=== PATIENT | male | born 1965 | race African-American/Black ===

== ENCOUNTER 2017-11-16 00:09 | Emergency (ER) | payer OTHER ==
[~2017-11-16] VITALS: Ht 188 cm; Wt 133.8 kg
[~2017-11-16 00:09] MED LIST: IBUPROFEN600 MG ORAL; NKM
[2017-11-16] MEDS ORDERED: Norco 5mg/325mg tab ORAL ONE (00:30)
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
[2017-11-16] MEDS ORDERED: HYDROCODON-ACE1 EA15 ORAL (02:03)
[2017-11-16] MEDS ORDERED: IBUPROFEN600 MG ORAL (02:03)
[2017-11-16 02:15] VITALS: BP 141/102
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
--- NOTE | 2017-11-16 14:27 | Diagnostic Imaging Report ---
Indication: Trauma Technique: 2 views of the right knee. Comparison: None Findings: Only frontal and lateral views were obtained. Per, x-ray technologist notes, patient could not tolerate additional views. There is degenerative change of the knee manifested by joint space narrowing, subchondral sclerosis and small osteophytes. No definite acute fracture or dislocation. There is a small suprapatellar joint effusion. No radiopaque foreign body seen. IMPRESSION: Limited exam with acquisition of only a frontal and lateral views. No definite/displaced acute fracture. No dislocation. More complete evaluation with full knee series radiographs and/or MRI may be obtained for further evaluation as clinically indicated. Degenerative change.
--- NOTE | 2017-11-16 14:31 | Diagnostic Imaging Report ---
Indication: Trauma Technique: XRAY Knee Compl 4v+ L Comparison: None Findings: There is degenerative change of the knee manifested by joint space narrowing, subchondral sclerosis and small osteophytes. No definite acute fracture or dislocation. No joint effusion. No radiopaque foreign body seen. IMPRESSION: No evidence of acute fracture or dislocation. Degenerative change.
== END 2017-11-16 02:17 | disposition home or self-care (01) ==
LOC: EMR 00:26
DX: S83.91XA Sprain of unspecified site of right knee, initial encounter (principal); S30.810A Abrasion of lower back and pelvis, initial encounter; S70.312A Abrasion, left thigh, initial encounter; S50.312A Abrasion of left elbow, initial encounter; S80.212A Abrasion, left knee, initial encounter; F17.200 Nicotine dependence, unspecified, uncomplicated; E11.9 Type 2 diabetes mellitus without complications; I10 Essential (primary) hypertension; Y04.8XXA Assault by other bodily force, initial encounter; Y92.410 Unspecified street and highway as the place of occurrence of the external cause
CPT/HCPCS: 99284

== ENCOUNTER 2017-11-26 08:28 | Emergency (ER) | payer OTHER ==
[~2017-11-26] VITALS: Ht 188 cm; Wt 131.5 kg
[~2017-11-26 08:28] MED LIST changes: +HYDROCODON-ACE1 EA15 ORAL
[2017-11-26] MEDS ORDERED: NKM (08:35)
[2017-11-26 08:52] VITALS: BP 126/84
[2017-11-26] MEDS ORDERED: Ketorolac 60mg Inj IM ONE (09:00)
--- NOTE | 2017-11-26 09:10 | Emergency Room Report ---
History of Present Illness General Chief Complaint: Pain Source: Patient, Medical Record Present Illness HPI Patient present with complaints of continued and worsening right knee pain Reports that initially most of his discomfort was with the left side of his body He has seen his primary physician Had x-ray obtained here However over the past one day now feeling worsening discomfort to the right knee Patient is a [place] and was standing on his feet all day yesterday Denies any chest pain or shortness of breath reports that initially did not have much discomfort on the right side and seems to be worsening now over the past day or so Allergies: Coded Allergies: No Known Allergies (Unverified , 06/13/16) Patient History Past Medical History: see triage record Pertinent Family History: none Reviewed Nursing Documentation: PMH: Agreed; PSxH: Agreed Nursing Documentation-PMH Past Medical History: No History, Except For Hx Diabetes: Yes Review of Systems All Other Systems: negative except mentioned in HPI Physical Exam Vital Signs Date Time Temp Pulse Resp B/P (MAP) Pulse Ox O2 Delivery O2 Flow Rate FiO2 11/26/17 08:31 98.0 99 18 126/84 95 Room Air 98.1 Sp02 EP Interpretation: reviewed, normal General Appearance: well appearing, no apparent distress Head: normocephalic, atraumatic Eyes: bilateral eye PERRL, bilateral eye EOMI ENT: normal pharynx Neck: supple Respiratory: lungs clear Musculoskeletal: other - Patient has discomfort to the lateral aspect of the right knee, mild swelling compared to the left side, calf is nontender Neurologic: alert, oriented x3, responsive Skin: other - Multiple healing abrasions Lymphatic: no adenopathy Procedures Splinting Splinting : Consent: Verbal Location: right knee Pre-Made Type: knee immobilizer Pre-Proc Neuro Vasc Exam: normal Post-Proc Neuro Vasc Exam: normal Patient Tolerated: Well Complications: None Medical Decision Making Diagnostic Impression: Primary Impression: Knee pain, right ER Course Given the patient's history and complaints Given that his pain was not significant initially and now reports that he had worsening discomfort Also given that the patient had recent travel and bed rest because of the pain Ultrasound was performed for right-sided DVT The examination was negative for this patient was provided with a knee immobilizer and requires close follow-up with primary physician for outpatient MRI as appropriate CT/MRI/US Diagnostic Results CT/MRI/US Diagnostic Results : Impression Right lower extremity venous ultrasound: Negative for DVT Last Vital Signs Date Time Temp Pulse Resp B/P (MAP) Pulse Ox O2 Delivery O2 Flow Rate FiO2 11/26/17 08:52 98.1 74 18 126/84 95 Room Air 98.1 Status: improved Disposition: HOME, SELF-CARE Condition: Improved Scripts Ibuprofen* (MOTRIN*) 600 Mg Tablet 600 MG ORAL Q8H PRN for For Pain, #20 TAB 0 Refills Prov: Pravin Mathews DO 11/26/17 Additional Instructions: Patient is provided with the discharge instructions notified to follow up with primary doctor in the next 2-3 days otherwise return to the er with any worsening symptoms. Please note that this report is being documented using [employer] technology. This can lead to erroneous entry secondary to incorrect interpretation by the dictating instrument. Pravin Mathews DO November 26, 2017 09:10
[2017-11-26] MEDS ORDERED: IBUPROFEN600 MG ORAL (09:47)
[2017-11-26 10:08] VITALS: BP 126/84
--- NOTE | 2017-11-26 12:39 | Diagnostic Imaging Report ---
APPROVED REPORT CPT Code: 87258 Present Symptoms Lower Extremity Pain: Right RIGHT LEG: Venous imaging reveals a patent deep venous system. There is no evidence of thrombus within the femoral, popliteal or tibial segments. The greater saphenous vein is also within normal limits. Doppler indicates normal spontaneous flow within these segments.
== END 2017-11-26 10:11 | disposition home or self-care (01) ==
LOC: EMR 08:57
DX: M25.561 Pain in right knee (principal); E11.9 Type 2 diabetes mellitus without complications
CPT/HCPCS: 29125; 29515; 93971; 96372; 99284

== ENCOUNTER 2018-05-05 13:52 | Emergency (ER) | payer OTHER ==
[~2018-05-05] VITALS: Ht 188 cm; Wt 129.3 kg
[2018-05-05 14:05] VITALS: BP 149/83
[2018-05-05] MEDS ORDERED: HYDROcodone/Acetamin 7.5/325 tab ORAL ONE (14:45)
[2018-05-05] MEDS ORDERED: Lidocaine 1% Plain 30 ml INJ ONE (15:00)
--- NOTE | 2018-05-05 15:49 | Diagnostic Imaging Report ---
Indication: Hand pain Technique: 3 views left hand Comparison: none Findings: There is a nondisplaced oblique fracture of the base of the third metacarpal. There is posterior dislocation of the fifth proximal interphalangeal joint, with the middle phalanx dislocated posteriorly by one bone width. No definite associated fracture. No other acute fractures or dislocations.There is mild degenerative joint space narrowing of the fifth distal interphalangeal joint and of the second third and fourth proximal interphalangeal joints. Impression: Positive for anterior dislocation of the fifth proximal interphalangeal joint Positive for acute fracture of the base of the third metacarpal Degenerative changes as described Findings discussed by phone with Letitia Parsons in the emergency room at the time of interpretation
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
[2018-05-05] MEDS ORDERED: IBUPROFEN600 MG ORAL (16:10)
[2018-05-05] MEDS ORDERED: NORCO 5-325 TA1 EACH ORAL (16:10)
[2018-05-05] MEDS ORDERED: CEPHALEXIN500 MG ORAL (16:10)
[2018-05-05 16:27] VITALS: BP 141/83
[2018-05-05 16:28] VITALS: BP 141/83
--- NOTE | 2018-05-05 16:51 | Diagnostic Imaging Report ---
Indication: Pain, status post reduction of fifth finger dislocation Technique: 3 views left hand Comparison: 1 1/2 hours earlier Findings: Interim reduction of previously demonstrated fifth proximal phalangeal dislocation, with now satisfactory anatomic alignment. No underlying fracture demonstrated. Again demonstrated is a nondisplaced oblique fracture of the third metacarpal. Impression: Successful reduction of previously demonstrated fifth proximal interphalangeal joint dislocation Stable third metacarpal fracture
== END 2018-05-05 16:31 | disposition home or self-care (01) ==
LOC: EMR 14:22
DX: S61.217A Laceration without foreign body of left little finger without damage to nail, initial encounter (principal); S63.287A Dislocation of proximal interphalangeal joint of left little finger, initial encounter; S62.313A Displaced fracture of base of third metacarpal bone, left hand, initial encounter for closed fracture; W05.1XXA Fall from non-moving nonmotorized scooter, initial encounter; Y92.9 Unspecified place or not applicable; R73.03 Prediabetes
CPT/HCPCS: 26770; 73130; 99284; J2001; Z7502

== ENCOUNTER 2018-05-11 16:34 | Emergency (ER) | payer OTHER ==
[~2018-05-11] VITALS: Ht 188 cm; Wt 129.3 kg
[~2018-05-11 16:34] MED LIST changes: +CEPHALEXIN500 MG ORAL; +NORCO 5-325 TA1 EACH ORAL
--- NOTE | 2018-05-11 17:18 | Emergency Room Report ---
History of Present Illness General Chief Complaint: Wound Recheck/Suture Removal Source: Medical Record Present Illness HPI 53-year-old male presents to the emergency department complaining of 9 out of 10 in severity localized pain to the left hand since last week. Patient reports that he was seen here in the emergency department where he received sutures and had his hand placed in a splint due to fracture. Patient states that the splint has since been falling off. Patient denies new trauma or fall. Patient denies erythema bleeding or discharge from the sutured site. Pt. states he has not had follow up with ortho yet. reports it being $900 and he cant afford that much. Allergies: Coded Allergies: No Known Allergies (Unverified , 06/13/16) Patient History Past Medical History: see triage record Past Surgical History: none Pertinent Family History: none Reviewed Nursing Documentation: PMH: Agreed; PSxH: Agreed Nursing Documentation-PMH Past Medical History: No History, Except For Hx Diabetes: Yes - borderline, not on meds Review of Systems All Other Systems: negative except mentioned in HPI Physical Exam Vital Signs Date Time Temp Pulse Resp B/P (MAP) Pulse Ox O2 Delivery O2 Flow Rate FiO2 05/11/18 16:44 97.9 70 14 137/93 99 Room Air Sp02 EP Interpretation: reviewed, normal General Appearance: no apparent distress, alert, GCS 15, non-toxic Head: normocephalic, atraumatic Eyes: bilateral eye normal inspection, bilateral eye PERRL ENT: hearing grossly normal, normal voice Neck: full range of motion Respiratory: lungs clear, normal breath sounds, speaking full sentences Cardiovascular #1: regular rate, rhythm, normal capillary refill Cardiovascular #2: 2+ radial (R), 2+ radial (L) Musculoskeletal: back normal, gait/station normal, normal range of motion, tender - left hand at 3rd metacarpal. no left pinky ttp, Neurologic: alert, oriented x3, responsive, motor strength/tone normal, sensory intact, speech normal, grossly normal Psychiatric: judgement/insight normal Skin: normal color, no rash, warm/dry, well hydrated, wd healing/no infection noted - sutures to remain in several more days, wound check ok no evidence of infection. Medical Decision Making PA Attestation Dr. Winkler is my supervising Physician whom patient management has been discussed with. Diagnostic Impression: Primary Impression: Encounter for wound re-check Additional Impression: Problem with immobilizing cast ER Course 53-year-old male presents to the emergency department complaining of 9 out of 10 in severity localized pain to the left hand since last week. Patient reports that he was seen here in the emergency department where he received sutures and had his hand placed in a splint due to fracture. Patient states that the splint has since been falling off. Patient denies new trauma or fall. Patient denies erythema bleeding or discharge from the sutured site. Pt. states he has not had follow up with ortho yet. reports it being $900 and he cant afford that much. Ddx considered but are not limited to New Fracture, dislocation, contusion, Sprain/Strain/Spasm, suture removal, cellulitis just to name a few. Vital signs: are WNL, pt. is afebrile H&PE are most consistent with musculoskeletal injury will perform imaging to r/ o fractures/dislocations. ORDERS: - X-ray not required at this time no new trauma or fall. ED INTERVENTIONS: - VOLAR LEFT HAND Splint applied by earth moving technician. Pt. remains neurovascularly intact. - sutures to remain in several more days, wound check ok no evidence of infection. DISCHARGE: At this time pt. is stable for d/c to home. Will provide printed patient care instructions, and any necessary prescriptions. Care plan and follow up instructions have been discussed with the patient prior to discharge. Last Vital Signs Date Time Temp Pulse Resp B/P (MAP) Pulse Ox O2 Delivery O2 Flow Rate FiO2 05/11/18 16:44 97.9 70 14 137/93 99 Room Air Disposition: HOME, SELF-CARE Condition: Stable Scripts Bacitracin/Polymyxin B Sulfate (BACITRACIN-POLYMYXIN OINTMENT) 28.35 Gm Oint...g. 1 APPLIC TP BID, #28.3 GM Prov: Letitia Parsons 05/11/18 Patient Instructions: Metacarpal Fracture, [id number], Wound Check Additional Instructions: Take medications as directed. Follow up with an RECORD PRESS TENDER in 3-5 days, even if your symptoms have resolved. * TO PRESERVE FULL FUNCTION OF YOUR HAND* --Please review list of primary care clinics, if you do not already have a primary care provider Return sooner to ED if new symptoms occur, or current symptoms become worse. - Please note that this Emergency Department Report was dictated using [employer],SLgraduate engineer technology software, occasionally this can lead to erroneous entry secondary to interpretation by the dictation equipment. Letitia Parsons May 11, 2018 17:18
[2018-05-11] MEDS ORDERED: BACITRACIN-P28.35 GM TP (17:24)
[2018-05-11] MEDS ORDERED: Bacitracin Oint UD TOPIC ONE (17:30)
[2018-05-11 17:48] VITALS: BP 127/78
== END 2018-05-11 17:50 | disposition home or self-care (01) ==
LOC: EMR 17:10
DX: M79.642 Pain in left hand (principal); Z47.89 Encounter for other orthopedic aftercare
CPT/HCPCS: 99283

== ENCOUNTER 2018-05-17 08:50 | Emergency (ER) | payer OTHER ==
[~2018-05-17] VITALS: Ht 188 cm; Wt 129.3 kg
[~2018-05-17 08:50] MED LIST changes: +BACITRACIN-P28.35 GM TP
[2018-05-17 09:26] VITALS: BP 145/102
--- NOTE | 2018-05-17 15:26 | Emergency Room Report ---
History of Present Illness General Chief Complaint: Wound Recheck/Suture Removal Source: Patient Present Illness HPI 53-year-old male presents ED for evaluation. Is here for suture removal. Sustained a fall on 05/05 with dislocation and laceration to his left fifth finger. Was reduced and laceration was repaired. Is here for suture removal. Denies any pain. States wound is healing properly. Denies fevers or chills. Denies any discharge. No other aggravating relieving factors. Denies any other associated symptoms Allergies: Coded Allergies: No Known Allergies (Unverified , 06/13/16) Patient History Past Medical History: none Past Surgical History: none Pertinent Family History: none Social History: Denies: smoking, alcohol use, drug use Immunizations: UTD Reviewed Nursing Documentation: PMH: Agreed; PSxH: Agreed Nursing Documentation-PMH Past Medical History: No History, Except For Hx Diabetes: Yes - borderline, not on meds Review of Systems All Other Systems: negative except mentioned in HPI Physical Exam Vital Signs Date Time Temp Pulse Resp B/P (MAP) Pulse Ox O2 Delivery O2 Flow Rate FiO2 05/17/18 09:05 97.7 72 18 157/112 98 Room Air Sp02 EP Interpretation: reviewed, normal General Appearance: no apparent distress, alert, GCS 15, non-toxic Head: normocephalic Eyes: bilateral eye normal inspection, bilateral eye PERRL ENT: normal ENT inspection Neck: normal inspection Respiratory: normal inspection Cardiovascular #1: normal inspection Gastrointestinal: normal inspection Rectal: deferred Genitourinary: no CVA tenderness Musculoskeletal: normal range of motion Neurologic: normal inspection Psychiatric: normal inspection Skin: other - laceration L 5th finger healing. well approximated. no induration /erythema Lymphatic: normal inspection Medical Decision Making Diagnostic Impression: Primary Impression: Encounter for removal of sutures ER Course Patient presents to the emergency department today for suture removal. patient' s wound appears well-healed, and sutures are ready to be removed today. Using sterile technique the sutures were removed patient tolerated procedure well without any difficulty. Patient was given advice in how to care for the wound patient is advised followup with his private care doctor in 2-3 days and return to emergency room for any worsening conditions as needed Last Vital Signs Date Time Temp Pulse Resp B/P (MAP) Pulse Ox O2 Delivery O2 Flow Rate FiO2 05/17/18 09:26 97.7 85 18 145/102 98 Room Air Status: improved Disposition: HOME, SELF-CARE Condition: Stable Referrals: NON PHYSICIAN (PCP) Patient Instructions: Suture Removal, Care After Eliezer Nguyễn MD May 17, 2018 15:26
== END 2018-05-17 09:26 | disposition home or self-care (01) ==
LOC: EMR 09:25
DX: S61.217D Laceration without foreign body of left little finger without damage to nail, subsequent encounter (principal); W19.XXXD Unspecified fall, subsequent encounter; Z48.02 Encounter for removal of sutures
CPT/HCPCS: 99282

== ENCOUNTER 2019-05-29 03:35 | Emergency (ER) | payer OTHER ==
[~2019-05-29] VITALS: Ht 188 cm; Wt 131.1 kg
[2019-05-29 03:43] VITALS: BP 145/99
[2019-05-29 04:00] VITALS: BP 145/99
[2019-05-29] MEDS ORDERED: PSEUDOEPHEDRINE60 MG PO (04:02)
--- NOTE | 2019-05-29 04:03 | Emergency Room Report ---
History of Present Illness General Chief Complaint: Earache Source: Patient, Medical Record Present Illness HPI This a 54-year-old male with no past medical history. He presents with right ear pain and fullness. He said he fell asleep on the couch. When he woke up he said he has some dull throbbing sensation in his right ear. He said he cannot hear out of it. He felt like there is fluid inside the ear or something inside the ear. It comes and go. Denies any fever or chills. Does have some slight congestion now. No other complaint. No foreign body. No trauma. Allergies: Coded Allergies: No Known Allergies (Unverified , 06/13/16) Patient History Past Medical History: see triage record, old chart reviewed Past Surgical History: none Pertinent Family History: none Social History: Denies: smoking Immunizations: other Reviewed Nursing Documentation: PMH: Agreed; PSxH: Agreed Nursing Documentation-PMH Past Medical History: No History, Except For Hx Diabetes: Yes - borderline, not on meds Review of Systems Eye: Denies: eye pain, blurred vision ENT: Reports: ear pain; Denies: nose congestion, throat swelling Respiratory: Denies: cough, shortness of breath Cardiovascular: Denies: chest pain, palpitations Gastrointestinal: Denies: abdominal pain, diarrhea, nausea, vomiting Musculoskeletal: Denies: back pain, joint pain Skin: Denies: rash Neurological: Denies: headache, numbness Endocrine: Denies: increased thirst, increased urine Hematologic/Lymphatic: Denies: easy bruising All Other Systems: negative except mentioned in HPI Physical Exam Vital Signs Date Time Temp Pulse Resp B/P (MAP) Pulse Ox O2 Delivery O2 Flow Rate FiO2 05/29/19 03:40 98.1 92 18 145/99 (114) 96 Room Air Vitals unremarkable Sp02 EP Interpretation: reviewed, normal General Appearance: well appearing, no apparent distress, alert Head: normocephalic, atraumatic Eyes: bilateral eye PERRL, bilateral eye EOMI ENT: hearing grossly normal, normal pharynx, other - Right ear is normal. Left ear obstructed by cerumen Neck: full range of motion, supple, no meningismus Respiratory: chest non-tender, lungs clear, normal breath sounds Cardiovascular #1: regular rate, rhythm, no murmur Gastrointestinal: normal bowel sounds, non tender, no mass, no organomegaly, no bruit, non-distended Musculoskeletal: back normal, normal range of motion, gait/station normal Psychiatric: mood/affect normal Procedures Additional Procedure Procedure Narrative Procedure: Cerumen disimpaction Indication: Cerumen impaction Description: I irrigated the left ear with normal saline. A large cerumen removed. Patient tolerated procedure without any problem. Medical Decision Making Diagnostic Impression: Primary Impression: Impacted cerumen of left ear Additional Impression: Acute effusion of right ear ER Course Presents with right ear fullness and decreasing. I suspect that may be an effusion. No evidence of infection. Will discharge home. Last Vital Signs Date Time Temp Pulse Resp B/P (MAP) Pulse Ox O2 Delivery O2 Flow Rate FiO2 05/29/19 03:43 98.1 93 18 145/99 96 Room Air Status: improved Disposition: HOME, SELF-CARE Condition: Stable Scripts Pseudoephedrine Hcl* (SUDAFED*) 60 Mg Tablet 60 MG PO Q6H, #30 TAB Prov: Helder Moore MD 05/29/19 Referrals: Melissa ELDRIDGE,REFERRING (PCP) Additional Instructions: Follow-up with your doctor in 7 days. If not better, you may need referral to see ear nose and throat doctor. Return if worse. Helder Moore MD May 29, 2019 04:03
== END 2019-05-29 04:10 | disposition home or self-care (01) ==
LOC: EMR 03:51
DX: H65.01 Acute serous otitis media, right ear (principal); H61.22 Impacted cerumen, left ear; E11.9 Type 2 diabetes mellitus without complications
CPT/HCPCS: 69209; Z7502; 99282

== ENCOUNTER 2019-11-04 09:04 | Emergency (ER) | payer OTHER ==
[~2019-11-04] VITALS: Ht 188 cm; Wt 127.0 kg
[~2019-11-04 09:04] MED LIST changes: +PSEUDOEPHEDRINE60 MG PO
--- NOTE | 2019-11-04 09:20 | NUR ---
ED Nurse Note: Pt ambulated to ed c/o severe headaches puslating around tempals and forehead. pt states he was in an ER 2 weeks ago and was given migraine medication and antibiotics. pt states that he had spoke to his dr and was told to have a cat scan. MALCOLM at bedside.
[2019-11-04 09:23] VITALS: BP 148/93
[2019-11-04] MEDS ORDERED: Ketorolac 30mg Inj IM ONE (09:30)
--- NOTE | 2019-11-04 09:52 | NUR ---
ED Nurse Note: Pt ambulated with steady gait with tech to CT head scan.
--- NOTE | 2019-11-04 10:04 | NUR ---
ED Nurse Note: Pt returned from CT with all belongings. Necklaces in pt pocket confirmed. pt states that temporal headache decreased but is hard to tell because his mask was pulling on his ear. Mask was changed and pt states that he feels slight pressure relieved but pain still at 7/10. will continue to monitor.
--- NOTE | 2019-11-04 10:53 | Diagnostic Imaging Report ---
Indications: Headache Technique: Spiral acquisitions obtained through the brain. Angled axial and coronal 5 x 5 mm slices were reconstructed. Total dose length product 1098 mGycm. CTDI vol(s) 53 mGy. Dose reduction achieved using automated exposure control Comparison: None. Findings: No acute intracranial hemorrhage or edema. No mass effect or midline shift. Normal de la rosa-white differentiation. Normal size ventricles and extra axial CSF spaces. Visualized orbits are unremarkable. There is bilateral ethmoid sinus disease incidentally noted. There is minimal right maxillary sinus disease. The mastoids are clear. The calvarium is intact. Impression: Negative for acute intracranial bleed or mass effect Minimal sinus disease The CT scanner at [facility] is accredited by the [employer] and the scans are performed using protocols designed to limit radiation exposure to as low as reasonably achievable to attain images of sufficient resolution adequate for diagnostic evaluation.
[2019-11-04 11:05] VITALS: BP 137/89
--- NOTE | 2019-11-04 11:06 | NUR ---
ED Nurse Note: ERMD at bedside discussing CT results. pt reports decreased headache
--- NOTE | 2019-11-04 11:08 | Emergency Room Report ---
History of Present Illness General Chief Complaint: Headache Source: Patient Present Illness HPI 54-year-old male presents the ED for evaluation of headache. Headache is been there for nearly 1 month. Frontal as well as temporal. Throbbing, 7 out of 10 , nonradiating. Denies photophobia. Denies blurry vision. Denies nausea or vomiting. Denies neck stiffness. Seen at another ER 2 weeks ago. Allergies: Coded Allergies: No Known Allergies (Unverified , 06/13/16) COVID-19 Screening Contact w/high risk pt: No Recent Travel to affected area: No Experienced COVID-19 symptoms?: No Patient History Past Medical History: DM Social History: Denies: smoking, alcohol use, drug use Immunizations: UTD Reviewed Nursing Documentation: PMH: Agreed; PSxH: Agreed Nursing Documentation-PMH Past Medical History: No Stated History Hx Diabetes: Yes - borderline, not on meds Review of Systems All Other Systems: negative except mentioned in HPI Physical Exam Vital Signs Date Time Temp Pulse Resp B/P (MAP) Pulse Ox O2 Delivery O2 Flow Rate FiO2 11/04/19 09:13 97.7 75 18 148/93 (111) 96 Room Air Sp02 EP Interpretation: reviewed, normal General Appearance: no apparent distress, alert, GCS 15, non-toxic Head: normocephalic, atraumatic Eyes: bilateral eye normal inspection, bilateral eye PERRL ENT: hearing grossly normal, normal pharynx, no angioedema, normal voice Neck: full range of motion, supple, no meningismus, supple/symm/no masses Respiratory: chest non-tender, lungs clear, normal breath sounds, speaking full sentences Cardiovascular #1: regular rate, rhythm, no edema Cardiovascular #2: 2+ carotid (R), 2+ carotid (L), 2+ radial (R), 2+ radial (L) , 2+ dorsalis pedis (R), 2+ dorsalis pedis (L) Gastrointestinal: normal bowel sounds, non tender, soft, non-distended, no guarding, no rebound Rectal: deferred Genitourinary: normal inspection, no CVA tenderness Musculoskeletal: back normal, normal range of motion, gait/station normal, non- tender Neurologic: alert, motor strength/tone normal, oriented x3, sensory intact, responsive, speech normal Psychiatric: judgement/insight normal, memory normal, mood/affect normal, no suicidal/homicidal ideation Reflexes: 3+ bicep (R), 3+ bicep (L), 3+ tricep (R), 3+ tricep (L), 3+ knee (R) , 3+ knee (L) Lymphatic: no adenopathy Medical Decision Making Diagnostic Impression: Primary Impression: Headache Qualified Codes: R51 - Headache ER Course Hospital Course 54 yo M presents with headache x 1 month Differential diagnoses include: tension headache, migraine, dehydration, intracranial bleed Clinical course Patient placed on stretcher. After initial history and physical I ordered CT Head, toradol and reglan CT head no acute process Upon reassessment patient states pain has improved. Patient feels better wishes to go home. Given the lack of fever, nuchal rigidity or neurological findings my suspicion for intracranial pathology is low patient be safely discharged to home. Safe for discharge with close outpatient follow-up. Patient would benefit from outpatient neurology evaluation. Does not have a PMD. I will provide referrals i. I feel this is a highly complex case requiring extensive working including EKG/Rhythm strip, Xray/CT/US, Blood/urine lab work, repeat exams while in ED, and administration of strong opiates/narcotics for pain control, admission to hospital or close patient follow up. Diagnosis - headache stable and discharged to home with Rx Reglan, Fioricet. f/up with PMD/ neurology. return to ED if symptoms recur/worsen. CT/MRI/US Diagnostic Results CT/MRI/US Diagnostic Results : Imaging Test Ordered: CT Head Impression Comparison: None. Findings: No acute intracranial hemorrhage or edema. No mass effect or midline shift. Normal de la rosa-white differentiation. Normal size ventricles and extra axial CSF spaces. Visualized orbits are unremarkable. There is bilateral ethmoid sinus disease incidentally noted. There is minimal right maxillary sinus disease. The mastoids are clear. The calvarium is intact. Impression: Negative for acute intracranial bleed or mass effect Minimal sinus disease The CT scanner at [facility] is accredited by the [employer] and the scans are performed using protocols designed to limit radiation exposure to as low as reasonably achievable to attain images of sufficient resolution adequate for diagnostic evaluation. Last Vital Signs Date Time Temp Pulse Resp B/P (MAP) Pulse Ox O2 Delivery O2 Flow Rate FiO2 11/04/19 10:03 97.7 11/04/19 09:23 86 18 148/93 96 Room Air Status: improved Disposition: HOME, SELF-CARE Condition: Stable Scripts Acetamin/Butalbital/Caffeine* (FIORICET*) 1 Ea Tab 1 TAB ORAL Q6H, #15 TAB 0 Refills Prov: Eliezer Nguyễn MD 11/04/19 Metoclopramide Hcl* (REGLAN*) 10 Mg Tablet 10 MG ORAL THREE TIMES A DAY, #20 TAB Prov: Eliezer Nguyễn MD 11/04/19 Referrals: NON PHYSICIAN (PCP) Eliezer Nguyễn MD November 04, 2019 11:08
[2019-11-04] MEDS ORDERED: REGLAN10 MG ORAL (11:09)
[2019-11-04] MEDS ORDERED: FIORICET1 EA ORAL (11:09)
[2019-11-04 11:12] VITALS: BP 137/89
--- NOTE | 2019-11-04 11:12 | NUR ---
ER DISCHARGE NOTE: Patient is cleared to be discharged per ERMD, pt is aox4, on room air, with stable vital signs. pt was given dc and prescription instructions, pt was able to verbalize understanding, pt id band removed. pt is able to ambulate with steady gait. pt took all belongings.
== END 2019-11-04 11:12 | disposition home or self-care (01) ==
LOC: EMR 09:38
DX: R51 Headache (principal); E11.9 Type 2 diabetes mellitus without complications; J32.2 Chronic ethmoidal sinusitis; J32.0 Chronic maxillary sinusitis
CPT/HCPCS: 70450; 96372; J1885; Z7502; 99284

== ENCOUNTER 2020-05-17 11:06 | Inpatient (IN) | payer OTHER ==
[~2020-05-17] VITALS: Ht 188 cm; Wt 128.4 kg
[~2020-05-17 11:06] MED LIST changes: +FIORICET1 EA ORAL; +REGLAN10 MG ORAL
[2020-05-17 11:11] VITALS: BP 132/85
--- NOTE | 2020-05-17 11:11 | NUR ---
ED Nurse Note: Pt walked in to ED form home c/o pain and swelling to left lower leg x2 days. Per pt, pain started from left foot then progressively has gotten bigger all the way up to his lower leg. Noted with redness and warm to touch. Denies fever/ chills. AAOx4, verbally responsive. On room air.
--- NOTE | 2020-05-17 12:56 | NUR ---
ED Nurse Note: IV line established. Blood sent to lab.
[2020-05-17] MEDS ORDERED: Vancomycin 1.5 GM in NS 275 ML IVPB ONE (13:00)
--- NOTE | 2020-05-17 13:30 | NUR ---
ED Nurse Note: US at bedside.
[2020-05-17 13:37] LABS: HEMATOCRIT 49.4 % (42.0-52.0); HEMOGLOBIN 16.4 G/DL (14.2-18.0); MEAN CORPUSCULAR VOLUME 92 FL (80-99); PLATELET COUNT 157 K/UL (150-450); RED BLOOD COUNT 5.35 M/UL (4.70-6.10); RED CELL DISTRIBUTION WIDTH 12.4 % (11.6-14.8); WHITE BLOOD COUNT 19.5 K/UL (4.8-10.8)
[2020-05-17 13:48] LABS: ANION GAP 10 mmol/L (5-15); BLOOD UREA NITROGEN 11 mg/dL (7-18); CARBON DIOXIDE 25 MMOL/L (21-32); CHLORIDE 101 MMOL/L (98-107); CREATININE 1.1 MG/DL (0.55-1.30); POTASSIUM 4.2 MMOL/L (3.5-5.1); SODIUM 136 MMOL/L (136-145)
[2020-05-17 13:59] LABS: ALANINE AMINOTRANSFERASE 29 U/L (12-78); ALBUMIN 3.5 G/DL (3.4-5.0); ALBUMIN/GLOBULIN RATIO 0.8 (1.0-2.7); ALKALINE PHOSPHATASE 82 U/L (46-116); ASPARTATE AMINO TRANSFERASE 25 U/L (15-37); BILIRUBIN,TOTAL 1.3 MG/DL (0.2-1.0)
[2020-05-17 14:00] LABS: BILIRUBIN,DIRECT 0.2 MG/DL (0.0-0.3)
--- NOTE | 2020-05-17 14:40 | Diagnostic Imaging Report ---
Indication: Left leg pain Technique: Grayscale and duplex images of the left lower extremity veins Comparison: None Findings: On the left, grayscale and duplex images demonstrate no evidence of intraluminal thrombus. Normal phasic Doppler waveforms, demonstrating normal augmentation response and no evidence of valvular insufficiency. Greater saphenous vein(s) and tibial veins are patent. Normal compressibility. Prominent lymph nodes are seen in the left inguinal region, demonstrate normal architecture Impression: Negative for evidence of lower extremity deep venous thrombosis bilaterally
--- NOTE | 2020-05-17 15:10 | Emergency Room Report ---
History of Present Illness General Chief Complaint: Edema Source: Patient, Medical Record Present Illness HPI Patient states he has had about 1 week of left leg swelling, warmth and erythema. He states that he popped the blister on that leg and the redness and warmth has worsened over the past week. He denies fever chills. He denies nausea or vomiting. He denies chest pain or shortness of breath. He has cough or congestion. He has no other complaints. Allergies: Coded Allergies: No Known Allergies (Unverified , 06/13/16) COVID-19 Screening Contact w/high risk pt: No Recent Travel to affected area: No Experienced COVID-19 symptoms?: No COVID-19 Testing performed SENIOR APPLICATIONS ENGINEER: Yes COVID-19 Screening: Negative COVID-19 COVID-19 Testing Source: 05/15/20 Patient History Past Medical History: see triage record, DM, HTN Social History: Denies: smoking, alcohol use, drug use Reviewed Nursing Documentation: PMH: Agreed; PSxH: Agreed Nursing Documentation-PMH Past Medical History: No History, Except For Hx Hypertension: Yes Hx Diabetes: Yes - borderline, not on meds Review of Systems All Other Systems: negative except mentioned in HPI Physical Exam Vital Signs Date Time Temp Pulse Resp B/P (MAP) Pulse Ox O2 Delivery O2 Flow Rate FiO2 05/17/20 11:11 98.4 108 16 132/85 (101) 95 Room Air Sp02 EP Interpretation: reviewed, normal General Appearance: no apparent distress, alert, GCS 15, non-toxic, obese Head: normocephalic, atraumatic Eyes: bilateral eye normal inspection, bilateral eye PERRL ENT: hearing grossly normal, normal pharynx, no angioedema, normal voice Neck: full range of motion, supple/symm/no masses Respiratory: chest non-tender, lungs clear, normal breath sounds, no respiratory distress, no retraction, no accessory muscle use, speaking full sentences Cardiovascular #1: regular rate, rhythm, no edema Gastrointestinal: normal bowel sounds, non tender, soft, non-distended, no guarding, no rebound Rectal: deferred Musculoskeletal: back normal, normal range of motion, swelling - LLE with swelling, erythema and warmth from ankle to knee. Neurologic: alert, motor strength/tone normal, oriented x3, sensory intact, responsive, speech normal Psychiatric: judgement/insight normal, memory normal, mood/affect normal, no suicidal/homicidal ideation Skin: other - See above in MSK Lymphatic: no adenopathy Medical Decision Making Diagnostic Impression: Primary Impression: Cellulitis Laboratory Tests Test 05/17/20 12:56 White Blood Count 19.5 K/UL (4.8-10.8) H Red Blood Count 5.35 M/UL (4.70-6.10) Hemoglobin 16.4 G/DL (14.2-18.0) Hematocrit 49.4 % (42.0-52.0) Mean Corpuscular Volume 92 FL (80-99) Mean Corpuscular Hemoglobin 30.6 PG (27.0-31.0) Mean Corpuscular Hemoglobin Concent 33.1 G/DL (32.0-36.0) Red Cell Distribution Width 12.4 % (11.6-14.8) Platelet Count 157 K/UL (150-450) Mean Platelet Volume 8.7 FL (6.5-10.1) Neutrophils (%) (Auto) % (45.0-75.0) Lymphocytes (%) (Auto) % (20.0-45.0) Monocytes (%) (Auto) % (1.0-10.0) Eosinophils (%) (Auto) % (0.0-3.0) Basophils (%) (Auto) % (0.0-2.0) Differential Total Cells Counted 100 Neutrophils % (Manual) 75 % (45-75) Lymphocytes % (Manual) 15 % (20-45) L Monocytes % (Manual) 10 % (1-10) Eosinophils % (Manual) 0 % (0-3) Basophils % (Manual) 0 % (0-2) Band Neutrophils 0 % (0-8) Platelet Estimate Adequate Platelet Morphology Normal Red Blood Cell Morphology Normal Sodium Level 136 MMOL/L (136-145) Potassium Level 4.2 MMOL/L (3.5-5.1) Chloride Level 101 MMOL/L (98-107) Carbon Dioxide Level 25 MMOL/L (21-32) Anion Gap 10 mmol/L (5-15) Blood Urea Nitrogen 11 mg/dL (7-18) Creatinine 1.1 MG/DL (0.55-1.30) Estimated Glomerular Filtration Rate > 60 mL/min (>60) Glucose Level 95 MG/DL (74-106) Calcium Level 9.0 MG/DL (8.5-10.1) Total Bilirubin 1.3 MG/DL (0.2-1.0) H Direct Bilirubin 0.2 MG/DL (0.0-0.3) Aspartate Amino Transferase (AST) 25 U/L (15-37) Alanine Aminotransferase (ALT) 29 U/L (12-78) Alkaline Phosphatase 82 U/L (46-116) Total Protein 8.0 G/DL (6.4-8.2) Albumin 3.5 G/DL (3.4-5.0) Globulin 4.5 g/dL Albumin/Globulin Ratio 0.8 (1.0-2.7) L Last Vital Signs Date Time Temp Pulse Resp B/P (MAP) Pulse Ox O2 Delivery O2 Flow Rate FiO2 05/17/20 11:11 108 16 Room Air 05/17/20 11:11 98.4 132/85 95 Referrals: Melissa ELDRIDGE,REFERRING (PCP) Marsha Sandhu DO May 17, 2020 15:10
[2020-05-17 15:22] VITALS: BP 124/82
--- NOTE | 2020-05-17 15:35 | NUR ---
NURSE NOTES: Received from [facility] Nurse , will wait for pt to arrive to floor
--- NOTE | 2020-05-17 15:36 | NUR ---
ED Nurse Note: Report given to Keith LAGUNA.
--- NOTE | 2020-05-17 15:39 | NUR ---
TRANSFER TO FLOOR: Patient transferred to [facility] via rney accompanied by 1 RN. Pt AAOx4, verbally responsive. No SOB. IV line on left hand 22g patent and intact. No skin issues. All belongings sent with the patient. Family aware of the transfer.
--- NOTE | 2020-05-17 15:49 | History & Physical ---
History and Physical History & Physicial Biju Simental MD May 17, 2020 15:49
[2020-05-17 16:00] VITALS: BP 145/97
--- NOTE | 2020-05-17 16:00 | NUR ---
NURSE NOTES: pt arrived to the floor via gurney, pt awake a/o x4, breaths regular unlabored on Ra c/o pain 6/10 of L lower leg will call for admission orders. PT helped self transfer to the hospital bed with stand by assist , performed skin assessment, intact , pt has L L leg is swollen with redness. Verified and signed for pt belongings, pt has three hundred fifty dollar, pt refused to put money in safe and says will give the money to his when she comes to visit. Pt has a Lt hand 22G saline locked , oriented pt to the room , provide call light and encouraged to to call for for help. Bed in low locked position, side rails upX2 , will continue to monitor
[2020-05-17] MEDS ORDERED: Tylenol #3 tab (300mg/30mg) ORAL PRN (18:00)
[2020-05-17] MEDS: HYDROcodone/Acetamin 10/325 tab ORAL PRN (18:24)
--- NOTE | 2020-05-17 19:30 | NUR ---
NURSE HAND-OFF: Important Events on Shift: new admit Patient Status: stable Diet: CCD medium Pending Orders: Pending Results/Labs: Pending MD notification: Latest Vital Signs: Temperature 100.0 , Pulse 100 , B/P 145 /97 , Respiratory Rate 19 , O2 SAT 97 , Room Air, O2 Flow Rate . Vital Sign Comment: Latest Voss Fall Score: 20 Fall Risk: Low Risk Safety Measures: Call light Within Reach, Bed Alarm Zone 2, Side Rails Side Rails x2, Bed position . Fall Precautions: Yellow Socks Report given to León RN.
--- NOTE | 2020-05-17 19:33 | NUR ---
NURSE NOTES: The patient is alert and oriented x4, cooperative with his care and does not seem to be in any distress at this time.He is room air with Resp even and unlabored. The patient can ambulate to the bathroom.He has a left hand 22g that is patent and asymptomatic.The patient was noted with Left lower leg cellulitis.The bed in low and locked position , side rails up X2 and call light with in reach, will continue to monitor as indicated.
[2020-05-17 20:00] VITALS: BP 140/97
[2020-05-17] MEDS: Vancomycin 1.5 GM in NS 275 ML IVPB SCH (20:16)
[2020-05-17] MEDS: Heparin 5000 units/ml inj SUBQ SCH (20:55)
[2020-05-17] MEDS: NovoLOG Insulin Flexpen SUBQ SCH (21:00)
[2020-05-17] MEDS: Zolpidem 5mg tab ORAL PRN (21:59)
[2020-05-18] VITALS: BP 129/84
[2020-05-18] MEDS: ceFAZolin sod 1 GM in D5W 55 ML IVPB SCH ×2 (00:11→16:33)
[2020-05-18] MEDS: HYDROcodone/Acetamin 10/325 tab ORAL PRN ×3 (00:53→16:48)
--- NOTE | 2020-05-18 01:18 | NUR ---
NURSE NOTES: The urine sample was collected for UA and sensitivity as indicated.
[2020-05-18 01:22] LABS: APPEARANCE,URINE CLEAR; BILIRUBIN, URINE NEGATIVE (NEGATIVE); GLUCOSE, URINE (UA) NEGATIVE (NEGATIVE); KETONES,URINE 1+ (NEGATIVE); LEUKOCYTE ESTERASE ,URINE NEGATIVE (NEGATIVE); NITRITE,URINE NEGATIVE (NEGATIVE); PH,URINE 6 (4.5-8.0); PROTEIN,URINE NEGATIVE (NEGATIVE); UROBILINOGEN,URINE 8 MG/DL (0.0-1.0)
[2020-05-18 01:32] LABS: COLOR,URINE YELLOW
[2020-05-18 04:00] VITALS: BP 126/83
[2020-05-18] MEDS: Vancomycin 1.5 GM in NS 275 ML IVPB SCH ×3 (04:12→20:42)
[2020-05-18] MEDS: NovoLOG Insulin Flexpen SUBQ SCH ×4 (06:13→20:42)
[2020-05-18] MEDS: metFORMIN 500mg tab ORAL SCH (06:17)
--- NOTE | 2020-05-18 06:34 | NUR ---
NURSE NOTES: The patient is alert and stable. He received his Vancomycin as prescribed and the is no evidence of SOB, no reaction or adverse effect noted at this time.Will continue to monitor as indicated
[2020-05-18 06:54] LABS: BASOPHILS % (AUTO) 0.5 % (0.0-2.0); EOSINOPHILS % (AUTO) 2.1 % (0.0-3.0); HEMATOCRIT 46.7 % (42.0-52.0); HEMOGLOBIN 15.5 G/DL (14.2-18.0); LYMPHOCYTES % (AUTO) 21.8 % (20.0-45.0); MEAN CORPUSCULAR VOLUME 93 FL (80-99); NEUTROPHILS % (AUTO) 65.6 % (45.0-75.0); PLATELET COUNT 139 K/UL (150-450); RED CELL DISTRIBUTION WIDTH 12.4 % (11.6-14.8); WHITE BLOOD COUNT 14.2 K/UL (4.8-10.8)
--- NOTE | 2020-05-18 07:15 | NUR ---
NURSE NOTES: Received report from LUZ ELENA Traore, rounds made pt sleeping breaths regular unlabored on RA no s/s distress , bed in low locked position , side rails upX 2, call light with in reach , will continue to monitor
--- NOTE | 2020-05-18 07:20 | NUR ---
NURSE HAND-OFF: Important Events on Shift:Received his antibiotic Vancomycin no allergy noted Patient Status: Diet: Pending Orders: Pending Results/Labs: Pending MD notification: Latest Vital Signs: Temperature 98.7 , Pulse 87 , B/P 126 /83 , Respiratory Rate 18 , O2 SAT 98 , Room Air, O2 Flow Rate 1.0 . Vital Sign Comment: Latest Voss Fall Score: 20 Fall Risk: Low Risk Safety Measures: Call light Within Reach, Bed Alarm Zone 1, Side Rails Side Rails x2, Bed position Low and Locked. Fall Precautions: Yellow Socks Yellow Gown Door Sign Patient Fall Education Report given to .
[2020-05-18 07:22] LABS: ALANINE AMINOTRANSFERASE 31 U/L (12-78); ALBUMIN 3.1 G/DL (3.4-5.0); ALBUMIN/GLOBULIN RATIO 0.8 (1.0-2.7); ALKALINE PHOSPHATASE 73 U/L (46-116); ANION GAP 8 mmol/L (5-15); ASPARTATE AMINO TRANSFERASE 18 U/L (15-37); BILIRUBIN,TOTAL 0.9 MG/DL (0.2-1.0); BLOOD UREA NITROGEN 12 mg/dL (7-18); CALCIUM 8.2 MG/DL (8.5-10.1); CARBON DIOXIDE 25 MMOL/L (21-32); CHLORIDE 104 MMOL/L (98-107); CREATININE 0.9 MG/DL (0.55-1.30); PHOSPHORUS 2.4 MG/DL (2.5-4.9); POTASSIUM 3.5 MMOL/L (3.5-5.1); SODIUM 137 MMOL/L (136-145)
[2020-05-18 08:00] VITALS: BP 152/96
[2020-05-18] MEDS: Losartan 25mg tab ORAL SCH (08:37)
[2020-05-18] MEDS: Heparin 5000 units/ml inj SUBQ SCH ×2 (08:39→20:43)
--- NOTE | 2020-05-18 09:45 | History and Physical Report ---
DATE OF ADMISSION: 05/17/2020 CHIEF COMPLAINT: Left leg redness, swollen. HISTORY OF PRESENT ILLNESS: This is a 55-year-old gentleman with past medical history significant for diabetes type 2, hypertension, who presented to the emergency department complaining about left leg swollen, redness, and tender to touch. The patient stated that there was a blister on the leg, redness, warmth worsening over the past one week, and subsequently after that the redness got progressively worsening. He denies any fever, chills, nausea, vomiting, diarrhea, or constipation. Denies any chest pain or shortness of breath. Occasional cough with chest congestion. Shortly after initial evaluation in the emergency department, the patient was admitted to the hospital with left leg cellulitis. PAST MEDICAL HISTORY/PAST SURGICAL HISTORY: As above. History of diabetes type 2, hypertension. Denies any past surgical history. MEDICATIONS: At home, please refer to medication reconciliation. ALLERGIES: No known drug allergies. SOCIAL HISTORY: The patient smokes 12 cigarettes a day over the past 35 years. Denies any alcohol or substance abuse. He is . 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 FAMILY HISTORY: Mother, history of diabetes and father, history of high blood pressure. REVIEW OF SYSTEMS: Mostly as above. Denies any dysuria, frequency or hematuria. Denies any hemoptysis or hematochezia. Denies any bright red blood per rectum. Denies any loss of consciousness. Denies any fall or head trauma. PHYSICAL EXAMINATION: VITAL SIGNS: On admission, temperature 98.4, pulse of 108, respirations 16, and blood pressure 132/85. GENERAL: The patient awake, responsive, no acute distress. HEAD AND NECK: Pupils equal and reactive to light. Extraocular movements intact. Neck was supple. No JVD. LUNGS: Good air entry. No wheezing or rales. HEART: S1, S2. Regular rhythm. No murmur or gallops. ABDOMEN: Soft, nondistended, nontender. Positive bowel sounds. Mildly obese. EXTREMITIES: Positive left lower extremity erythema, redness, warm to touch. Mildly edematous +1 edema. NEUROLOGIC: Cranial nerves II through XII were . Gait is intact. RECTAL: Refused and deferred. GENITOURINARY: Refused and deferred. PSYCHIATRIC: Mood and affect is intact. LABORATORY DATA: On admission, WBC of 19, hemoglobin of 16, hematocrit 49, platelet is 157. Sodium 136, potassium 4.2, chloride 101, bicarb 25, BUN 11, creatinine 1.1, GFR is greater than 60, glucose level is 95, calcium is 9.0. Total bilirubin 1.3, direct bilirubin 0.2. AST of 25 and ALT of 29. Albumin is 3.5. UA has +2 blood, +1 ketone, negative leukocytes, negative glucose. The patient had a duplex of the lower extremities. Negative for evidence of the lower extremity deep vein thrombosis. ASSESSMENT: 1. Cellulitis of left lower extremity. 2. Diabetes type 2. 3. Hypertension. 4. Obesity. PLAN: Admit the patient to medical floor. We will follow up with laboratory as well as cultures. Code status, full code. DVT prophylaxis, heparin subcutaneous. We will start the patient on broad-spectrum antibiotics with vancomycin. We will follow up with Dr. Kelly consultation and recommendation. Biju Simental M.D. DR: FEDERICO/VELASQUEZ JOB#: [id number] CC:
--- NOTE | 2020-05-18 11:12 | Consultation ---
History of Present Illness General Date patient seen: May 18, 2020 Chief Complaint: Edema Present Illness HPI 55 y/o M with hx of Dm2, HTN, obesity, tobacco abuse presented to ED on 05/17/20 with 1 week of Left leg swelling, warmth, erythema; Patient had a blister that he popped and since then leg has worsened. Denied f/c, n/v/d, CP, SOB, cough, dysuria. Tested neg on 05/15/20 Allergies: Coded Allergies: No Known Allergies (Unverified , 06/13/16) Medication History Unable to Obtain Active Prescriptions or Reported Meds Patient History Healthcare decision maker Resuscitation status Advanced Directive on File Patient History Narrative PMhx: as above Shx: The patient smokes 12 cigarettes a day over the past 35 years. Denies any alcohol or substance abuse. He is . 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 Fhx: non contributory Review of Systems All Other Systems: negative except mentioned in HPI Physical Exam Physical Exam Narrative GENERAL: The patient awake, responsive, no acute distress. HEAD AND NECK: Pupils equal and reactive to light. Extraocular movements intact. Neck was supple. No JVD. LUNGS: Good air entry. No wheezing or rales. HEART: S1, S2. Regular rhythm. No murmur or gallops. ABDOMEN: Soft, nondistended, nontender. Positive bowel sounds. Mildly obese. EXTREMITIES: Positive left lower extremity erythema, redness, warm to touch. Mildly edematous +1 edema. Last 24 Hour Vital Signs Date Time Temp Pulse Resp B/P (MAP) Pulse Ox O2 Delivery O2 Flow Rate FiO2 05/18/20 09:00 Room Air 05/18/20 08:37 152/96 05/18/20 08:00 97.2 86 18 152/96 (114) 96 05/18/20 04:00 98.7 87 18 126/83 (97) 98 05/18/20 00:00 97.9 92 20 129/84 (99) 98 05/17/20 21:00 Room Air 1.0 05/17/20 20:00 98.7 93 20 140/97 (111) 97 05/17/20 16:00 100.0 100 19 145/97 (113) 97 05/17/20 15:40 98.4 105 19 124/82 96 Room Air 05/17/20 15:22 98.4 105 19 124/82 96 Room Air 05/17/20 11:11 108 16 Room Air 05/17/20 11:11 98.4 108 16 132/85 95 Room Air 05/17/20 11:11 98.4 108 16 132/85 (101) 95 Room Air Intake and Output 05/17/20 05/18/20 19:00 07:00 Intake Total 1675 ml Balance 1675 ml Intake Oral 400 ml IV Total 1275 ml # Voids 2 3 # Bowel Movements 2 Laboratory Tests Test 05/17/20 12:56 05/17/20 20:44 05/18/20 01:05 05/18/20 06:10 White Blood Count 19.5 K/UL (4.8-10.8) H 14.2 K/UL (4.8-10.8) H Red Blood Count 5.35 M/UL (4.70-6.10) 5.00 M/UL (4.70-6.10) Hemoglobin 16.4 G/DL (14.2-18.0) 15.5 G/DL (14.2-18.0) Hematocrit 49.4 % (42.0-52.0) 46.7 % (42.0-52.0) Mean Corpuscular Volume 92 FL (80-99) 93 FL (80-99) Mean Corpuscular Hemoglobin 30.6 PG (27.0-31.0) 30.9 PG (27.0-31.0) Mean Corpuscular Hemoglobin Concent 33.1 G/DL (32.0-36.0) 33.1 G/DL (32.0-36.0) Red Cell Distribution Width 12.4 % (11.6-14.8) 12.4 % (11.6-14.8) Platelet Count 157 K/UL (150-450) 139 K/UL (150-450) L Mean Platelet Volume 8.7 FL (6.5-10.1) 8.9 FL (6.5-10.1) Neutrophils (%) (Auto) % (45.0-75.0) 65.6 % (45.0-75.0) Lymphocytes (%) (Auto) % (20.0-45.0) 21.8 % (20.0-45.0) Monocytes (%) (Auto) % (1.0-10.0) 10.0 % (1.0-10.0) Eosinophils (%) (Auto) % (0.0-3.0) 2.1 % (0.0-3.0) Basophils (%) (Auto) % (0.0-2.0) 0.5 % (0.0-2.0) Differential Total Cells Counted 100 Neutrophils % (Manual) 75 % (45-75) Lymphocytes % (Manual) 15 % (20-45) L Monocytes % (Manual) 10 % (1-10) Eosinophils % (Manual) 0 % (0-3) Basophils % (Manual) 0 % (0-2) Band Neutrophils 0 % (0-8) Platelet Estimate Adequate Platelet Morphology Normal Red Blood Cell Morphology Normal Sodium Level 136 MMOL/L (136-145) 137 MMOL/L (136-145) Potassium Level 4.2 MMOL/L (3.5-5.1) 3.5 MMOL/L (3.5-5.1) Chloride Level 101 MMOL/L (98-107) 104 MMOL/L (98-107) Carbon Dioxide Level 25 MMOL/L (21-32) 25 MMOL/L (21-32) Anion Gap 10 mmol/L (5-15) 8 mmol/L (5-15) Blood Urea Nitrogen 11 mg/dL (7-18) 12 mg/dL (7-18) Creatinine 1.1 MG/DL (0.55-1.30) 0.9 MG/DL (0.55-1.30) Estimat Glomerular Filtration Rate > 60 mL/min (>60) > 60 mL/min (>60) Glucose Level 95 MG/DL (74-106) 108 MG/DL (74-106) H Calcium Level 9.0 MG/DL (8.5-10.1) 8.2 MG/DL (8.5-10.1) L Total Bilirubin 1.3 MG/DL (0.2-1.0) H 0.9 MG/DL (0.2-1.0) Direct Bilirubin 0.2 MG/DL (0.0-0.3) Aspartate Amino Transf (AST/SGOT) 25 U/L (15-37) 18 U/L (15-37) Alanine Aminotransferase (ALT/SGPT) 29 U/L (12-78) 31 U/L (12-78) Alkaline Phosphatase 82 U/L (46-116) 73 U/L (46-116) Total Protein 8.0 G/DL (6.4-8.2) 7.2 G/DL (6.4-8.2) Albumin 3.5 G/DL (3.4-5.0) 3.1 G/DL (3.4-5.0) L Globulin 4.5 g/dL 4.1 g/dL Albumin/Globulin Ratio 0.8 (1.0-2.7) L 0.8 (1.0-2.7) L POC Whole Blood Glucose 133 MG/DL (74-106) H Urine Color Yellow Urine Appearance Clear Urine pH 6 (4.5-8.0) Urine Specific [place] 1.025 (1.005-1.035) Urine Protein Negative (NEGATIVE) Urine Glucose (UA) Negative (NEGATIVE) Urine Ketones 1+ (NEGATIVE) H Urine Blood 2+ (NEGATIVE) H Urine Nitrite Negative (NEGATIVE) Urine Bilirubin Negative (NEGATIVE) Urine Urobilinogen 8 MG/DL (0.0-1.0) H Urine Leukocyte Esterase Negative (NEGATIVE) Urine RBC 2-4 /HPF (0 - 0) H Urine WBC 0-2 /HPF (0 - 0) Urine Squamous Epithelial Cells Occasional /LPF Urine Bacteria Occasional /HPF (NONE) Urine Mucus Occasional /LPF Phosphorus Level 2.4 MG/DL (2.5-4.9) L Magnesium Level 1.9 MG/DL (1.8-2.4) Test 05/18/20 06:11 POC Whole Blood Glucose 108 MG/DL (74-106) H Height (Feet): 6 Height (Inches): 2.00 Weight (Pounds): 283 Medications Current Medications Medications (Trade) Dose Ordered Sig/Lia Route PRN Reason Start Time Stop Time Status Last Admin Dose Admin Acetaminophen (Tylenol) 650 mg Q6H PRN ORAL Mild Pain (Pain Scale 1-3) 05/17/20 17:30 06/16/20 17:29 Acetaminophen (Tylenol) 650 mg Q6H PRN ORAL Temp >100 05/17/20 18:00 06/16/20 17:59 Acetaminophen/ Codeine Phosphate (Tylenol #3) 1 tab Q6H PRN ORAL Moderate Pain (Pain Scale 4-6) 05/17/20 18:00 05/24/20 17:59 Acetaminophen/ Hydrocodone Bitart ([place] 10/325) 1 tab Q6H PRN ORAL Severe Pain (Pain Scale 7-10) 05/17/20 18:30 05/24/20 18:29 05/18/20 08:36 Dextrose (Dextrose 50%) 25 ml Q30M PRN IV Hypoglycemia 05/17/20 18:30 08/15/20 18:29 Dextrose (Dextrose 50%) 50 ml Q30M PRN IV Hypoglycemia 05/17/20 20:15 08/15/20 20:14 Heparin Sodium (Porcine) (Heparin 5000 units/ml) 5,000 units EVERY 12 HOURS SUBQ 05/17/20 21:00 07/01/20 20:59 05/18/20 08:39 Insulin Aspart (NovoLOG) BEFORE MEALS AND HS SUBQ 05/17/20 21:00 08/15/20 20:59 Losartan Potassium (Cozaar) 25 mg DAILY ORAL 05/18/20 09:00 06/17/20 08:59 05/18/20 08:37 Metformin HCl (Glucophage) 500 mg ACBREAKFAST ORAL 05/18/20 06:30 06/17/20 06:29 05/18/20 06:17 Ondansetron HCl (Zofran) 4 mg Q4H PRN IVP Nausea & Vomiting 05/17/20 17:30 06/16/20 17:29 Vancomycin HCl (Vanco pharmacy to dose) 1 ea DAILY PRN MISC Per rx protocol 05/17/20 17:30 06/16/20 17:29 Vancomycin HCl 1.5 gm/Sodium Chloride 275 ml @ 137.5 mls/ hr Q8H IVPB 05/17/20 20:00 05/22/20 19:59 05/18/20 04:12 Zolpidem Tartrate (Ambien) 5 mg HSPRN PRN ORAL Insomnia 05/17/20 21:00 05/24/20 20:59 05/17/20 21:59 Assessment/Plan Assessment/Plan: Abx: IV Vancomycin 05/17- Assessment: Sepsis L leg cellulitis Low grade fever x1 Leukocytosis, improving Dm2 HTN obesity tobacco abuse Plan: -Continue empiric IV Vancomycin #2 and add IV Ancef -f/u cx -Monitor CBC/CMP, temperatures -Bcx x2 Thank you for consulting [facility]. Will continue to follow along with you. Discussed wit LUZ ELENA. Cynthia Gilliam M.D. May 18, 2020 11:12
[2020-05-18 12:00] VITALS: BP 157/93
--- NOTE | 2020-05-18 12:11 | NUR ---
CASE MANAGEMENT:INITIAL REVIEW 55 YR OLD MALE FROM HOME CC;EDEMA SI;CELLULITIS 100.0 108 20 145/97 95% ON RA WBC 19.5 T-BILI 1.3 UA+ KETONES, UROBILINOGEN, BLOOD, RBC VENOUS DUPLEX ~ Negative for evidence of lower extremity deep venous thrombosis bilaterally IS;VANCOMYCIN IV IVF N S BOLUS ADMITTED TO MED SURG 05/17/20 @ 1525 MED SURG STATUS DCP;FROM HOME
--- NOTE | 2020-05-18 14:15 | Internal Med Progress Note ---
Subjective Physician Name Biju Simental Attending Physician Biju Simental MD Current Medications Medications (Trade) Dose Ordered Sig/Lia Route PRN Reason Start Time Stop Time Status Last Admin Dose Admin Acetaminophen (Tylenol) 650 mg Q6H PRN ORAL Mild Pain (Pain Scale 1-3) 05/17/20 17:30 06/16/20 17:29 Acetaminophen (Tylenol) 650 mg Q6H PRN ORAL Temp >100 05/17/20 18:00 06/16/20 17:59 Acetaminophen/ Codeine Phosphate (Tylenol #3) 1 tab Q6H PRN ORAL Moderate Pain (Pain Scale 4-6) 05/17/20 18:00 05/24/20 17:59 Acetaminophen/ Hydrocodone Bitart ([place] 10/325) 1 tab Q6H PRN ORAL Severe Pain (Pain Scale 7-10) 05/17/20 18:30 05/24/20 18:29 05/18/20 08:36 Cefazolin Sodium 1 gm/Dextrose 55 ml @ 110 mls/hr Q8HR IVPB 05/18/20 15:00 05/25/20 14:59 Dextrose (Dextrose 50%) 25 ml Q30M PRN IV Hypoglycemia 05/17/20 18:30 08/15/20 18:29 Dextrose (Dextrose 50%) 50 ml Q30M PRN IV Hypoglycemia 05/17/20 20:15 08/15/20 20:14 Heparin Sodium (Porcine) (Heparin 5000 units/ml) 5,000 units EVERY 12 HOURS SUBQ 05/17/20 21:00 07/01/20 20:59 05/18/20 08:39 Insulin Aspart (NovoLOG) BEFORE MEALS AND HS SUBQ 05/17/20 21:00 08/15/20 20:59 Losartan Potassium (Cozaar) 25 mg DAILY ORAL 05/18/20 09:00 06/17/20 08:59 05/18/20 08:37 Metformin HCl (Glucophage) 500 mg ACBREAKFAST ORAL 05/18/20 06:30 06/17/20 06:29 05/18/20 06:17 Ondansetron HCl (Zofran) 4 mg Q4H PRN IVP Nausea & Vomiting 05/17/20 17:30 06/16/20 17:29 Vancomycin HCl ([facility] pharmacy to dose) 1 ea DAILY PRN MISC Per rx protocol 05/17/20 17:30 06/16/20 17:29 Vancomycin HCl 1.5 gm/Sodium Chloride 275 ml @ 137.5 mls/ hr Q8H IVPB 05/17/20 20:00 05/22/20 19:59 05/18/20 11:57 Zolpidem Tartrate (Ambien) 5 mg HSPRN PRN ORAL Insomnia 05/17/20 21:00 05/24/20 20:59 05/17/20 21:59 Allergies: Coded Allergies: No Known Allergies (Unverified , 06/13/16) Subjective awake, alert, responsive, no acute distress, WBC 14.2. Objective Last Vital Signs Date Time Temp Pulse Resp B/P (MAP) Pulse Ox O2 Delivery O2 Flow Rate FiO2 05/18/20 12:00 98.1 82 18 157/93 (114) 97 05/18/20 09:00 Room Air 05/17/20 21:00 1.0 Laboratory Tests Test 05/17/20 20:44 05/18/20 01:05 05/18/20 06:10 05/18/20 06:11 POC Whole Blood Glucose 133 MG/DL (74-106) H 108 MG/DL (74-106) H Urine Color Yellow Urine Appearance Clear Urine pH 6 (4.5-8.0) Urine Specific [place] 1.025 (1.005-1.035) Urine Protein Negative (NEGATIVE) Urine Glucose (UA) Negative (NEGATIVE) Urine Ketones 1+ (NEGATIVE) H Urine Blood 2+ (NEGATIVE) H Urine Nitrite Negative (NEGATIVE) Urine Bilirubin Negative (NEGATIVE) Urine Urobilinogen 8 MG/DL (0.0-1.0) H Urine Leukocyte Esterase Negative (NEGATIVE) Urine RBC 2-4 /HPF (0 - 0) H Urine WBC 0-2 /HPF (0 - 0) Urine Squamous Epithelial Cells Occasional /LPF Urine Bacteria Occasional /HPF (NONE) Urine Mucus Occasional /LPF White Blood Count 14.2 K/UL (4.8-10.8) H Red Blood Count 5.00 M/UL (4.70-6.10) Hemoglobin 15.5 G/DL (14.2-18.0) Hematocrit 46.7 % (42.0-52.0) Mean Corpuscular Volume 93 FL (80-99) Mean Corpuscular Hemoglobin 30.9 PG (27.0-31.0) Mean Corpuscular Hemoglobin Concent 33.1 G/DL (32.0-36.0) Red Cell Distribution Width 12.4 % (11.6-14.8) Platelet Count 139 K/UL (150-450) L Mean Platelet Volume 8.9 FL (6.5-10.1) Neutrophils (%) (Auto) 65.6 % (45.0-75.0) Lymphocytes (%) (Auto) 21.8 % (20.0-45.0) Monocytes (%) (Auto) 10.0 % (1.0-10.0) Eosinophils (%) (Auto) 2.1 % (0.0-3.0) Basophils (%) (Auto) 0.5 % (0.0-2.0) Sodium Level 137 MMOL/L (136-145) Potassium Level 3.5 MMOL/L (3.5-5.1) Chloride Level 104 MMOL/L (98-107) Carbon Dioxide Level 25 MMOL/L (21-32) Anion Gap 8 mmol/L (5-15) Blood Urea Nitrogen 12 mg/dL (7-18) Creatinine 0.9 MG/DL (0.55-1.30) Estimat Glomerular Filtration Rate > 60 mL/min (>60) Glucose Level 108 MG/DL (74-106) H Calcium Level 8.2 MG/DL (8.5-10.1) L Phosphorus Level 2.4 MG/DL (2.5-4.9) L Magnesium Level 1.9 MG/DL (1.8-2.4) Total Bilirubin 0.9 MG/DL (0.2-1.0) Aspartate Amino Transf (AST/SGOT) 18 U/L (15-37) Alanine Aminotransferase (ALT/SGPT) 31 U/L (12-78) Alkaline Phosphatase 73 U/L (46-116) Total Protein 7.2 G/DL (6.4-8.2) Albumin 3.1 G/DL (3.4-5.0) L Globulin 4.1 g/dL Albumin/Globulin Ratio 0.8 (1.0-2.7) L Test 05/18/20 11:55 POC Whole Blood Glucose 113 MG/DL (74-106) H Intake and Output 05/17/20 05/18/20 19:00 07:00 Intake Total 1675 ml Balance 1675 ml Intake Oral 400 ml IV Total 1275 ml # Voids 2 3 # Bowel Movements 2 Objective General: No acute distress, awake and alert HEENT: NCAT, sclera anicteric, PERRL, EOMI. Neck: Supple, no significant jugular venous distention, Lungs: Good inspiratory effort, no accessory muscle use, clear to auscultation bilaterally, no Wheeze or Rales. Heart: Regular rate and rhythm, normal S1/S2, no murmurs/gallops Abdomen: soft, nontender, nondistended. Normoactive bowel sounds.obesity. / Rectal: Refused and deferred. Extremities: No Cyanosis , clubbing left lower extremity with decreased erythema and edema. Neuro: A&O x 3, Able to move all extremities Skin: warm, no rashes or lesions Psych: Normal mood and affect Assessment/Plan Assessment/Plan ASSESSMENT: 1. Cellulitis of left lower extremity. 2. Diabetes type 2. 3. Hypertension. 4. Obesity. PLAN: In medical floor. Follow up with laboratory as well as cultures. Antibiotics: vancomycin IV and Ancef IV F/U Dr. Kelly and Dr. Olea consultation and recommendation. Code status: Full code. DVT prophylaxis: Heparin subcutaneous. Biju Simental MD May 18, 2020 14:15
--- NOTE | 2020-05-18 14:43 | Consultation ---
History of Present Illness General Date patient seen: May 18, 2020 Reason for Hospitalization: Edema Present Illness HPI This is a very pleasant 55-year-old male with multimedical committees who presents [facility] complaining worsening left lower extremity edema cellulitis and blistering. Patient was identified to have cellulitis abnormal labs and was admitted further care and management. Surgery was called to evaluate given the blister and open wound. Patient seen, patient evaluated , chart reviewed. Consideration of possible abscess. Patient was seen and the wound was completely evaluated to ensure healing. Allergies: Coded Allergies: No Known Allergies (Unverified , 06/13/16) COVID-19 Screening Contact w/high risk pt: No Recent Travel to affected area: No Experienced COVID-19 symptoms?: No Medication History Unable to Obtain Active Prescriptions or Reported Meds Patient History History Provided By: Patient, Medical Record, PMD Healthcare decision maker Resuscitation status Advanced Directive on File Past Medical/Surgical History Past Medical/Surgical History: (1) Knee pain, right (2) Encounter for removal of sutures (3) Cellulitis Review of Systems Review of Symptoms General ROS: no weight loss or fever Psychological ROS: no depression or mood changes, no memory loss Ophthalmic ROS: no visual changes or eye irritation ENT ROS: no nasal congestion, hearing loss, dizziness Allergy and Immunology ROS: no allergic symptoms or urticaria Hematological and Lymphatic ROS: no swollen glands, unusual bleeding or bruising Endocrine ROS: no polyuria, polydipsia, weight changes, temperature intolerance Respiratory ROS: no cough, shortness of breath, or wheezing Cardiovascular ROS: no chest pain or dyspnea on exertion Gastrointestinal ROS: denies abdominal pain, bright red blood in stool. Musculoskeletal ROS: no myalgias or arthralgias Neurological ROS: no TIA or stroke symptoms Dermatological ROS: no new or changing skin lesions, rashes or pruritis Physical Exam Physical Exam General appearance: alert, cooperative, no distress, appears stated age Head: Normocephalic, without obvious abnormality, atraumatic Eyes: conjunctivae/corneas clear. PERRL, EOM's intact. Fundi benign Throat: Lips, mucosa, and tongue normal. Teeth and gums normal Neck: supple, symmetrical, trachea midline, no adenopathy, thyroid: not enlarged, symmetric, no tenderness/mass/nodules, no carotid bruit and no JVD Lungs: clear to auscultation bilaterally Heart: regular rate and rhythm, S1, S2 normal, no murmur, click, rub or gallop Abdomen: soft, non-tender. Bowel sounds normal. No masses, no organomegaly Extremities: extremities ++LLE edema Pulses: 2+ and symmetric Skin: Skin color, texture, turgor normal. No rashes or lesions Neurologic: Grossly normal Last 24 Hour Vital Signs Date Time Temp Pulse Resp B/P (MAP) Pulse Ox O2 Delivery O2 Flow Rate FiO2 05/18/20 12:00 98.1 82 18 157/93 (114) 97 05/18/20 09:00 Room Air 05/18/20 08:37 152/96 05/18/20 08:00 97.2 86 18 152/96 (114) 96 05/18/20 04:00 98.7 87 18 126/83 (97) 98 05/18/20 00:00 97.9 92 20 129/84 (99) 98 05/17/20 21:00 Room Air 1.0 05/17/20 20:00 98.7 93 20 140/97 (111) 97 05/17/20 16:00 100.0 100 19 145/97 (113) 97 05/17/20 15:40 98.4 105 19 124/82 96 Room Air 05/17/20 15:22 98.4 105 19 124/82 96 Room Air Intake and Output 05/17/20 05/18/20 19:00 07:00 Intake Total 1675 ml Balance 1675 ml Intake Oral 400 ml IV Total 1275 ml # Voids 2 3 # Bowel Movements 2 Laboratory Tests Test 05/17/20 20:44 05/18/20 01:05 05/18/20 06:10 05/18/20 06:11 POC Whole Blood Glucose 133 MG/DL (74-106) H 108 MG/DL (74-106) H Urine Color Yellow Urine Appearance Clear Urine pH 6 (4.5-8.0) Urine Specific [place] 1.025 (1.005-1.035) Urine Protein Negative (NEGATIVE) Urine Glucose (UA) Negative (NEGATIVE) Urine Ketones 1+ (NEGATIVE) H Urine Blood 2+ (NEGATIVE) H Urine Nitrite Negative (NEGATIVE) Urine Bilirubin Negative (NEGATIVE) Urine Urobilinogen 8 MG/DL (0.0-1.0) H Urine Leukocyte Esterase Negative (NEGATIVE) Urine RBC 2-4 /HPF (0 - 0) H Urine WBC 0-2 /HPF (0 - 0) Urine Squamous Epithelial Cells Occasional /LPF Urine Bacteria Occasional /HPF (NONE) Urine Mucus Occasional /LPF White Blood Count 14.2 K/UL (4.8-10.8) H Red Blood Count 5.00 M/UL (4.70-6.10) Hemoglobin 15.5 G/DL (14.2-18.0) Hematocrit 46.7 % (42.0-52.0) Mean Corpuscular Volume 93 FL (80-99) Mean Corpuscular Hemoglobin 30.9 PG (27.0-31.0) Mean Corpuscular Hemoglobin Concent 33.1 G/DL (32.0-36.0) Red Cell Distribution Width 12.4 % (11.6-14.8) Platelet Count 139 K/UL (150-450) L Mean Platelet Volume 8.9 FL (6.5-10.1) Neutrophils (%) (Auto) 65.6 % (45.0-75.0) Lymphocytes (%) (Auto) 21.8 % (20.0-45.0) Monocytes (%) (Auto) 10.0 % (1.0-10.0) Eosinophils (%) (Auto) 2.1 % (0.0-3.0) Basophils (%) (Auto) 0.5 % (0.0-2.0) Sodium Level 137 MMOL/L (136-145) Potassium Level 3.5 MMOL/L (3.5-5.1) Chloride Level 104 MMOL/L (98-107) Carbon Dioxide Level 25 MMOL/L (21-32) Anion Gap 8 mmol/L (5-15) Blood Urea Nitrogen 12 mg/dL (7-18) Creatinine 0.9 MG/DL (0.55-1.30) Estimat Glomerular Filtration Rate > 60 mL/min (>60) Glucose Level 108 MG/DL (74-106) H Calcium Level 8.2 MG/DL (8.5-10.1) L Phosphorus Level 2.4 MG/DL (2.5-4.9) L Magnesium Level 1.9 MG/DL (1.8-2.4) Total Bilirubin 0.9 MG/DL (0.2-1.0) Aspartate Amino Transf (AST/SGOT) 18 U/L (15-37) Alanine Aminotransferase (ALT/SGPT) 31 U/L (12-78) Alkaline Phosphatase 73 U/L (46-116) Total Protein 7.2 G/DL (6.4-8.2) Albumin 3.1 G/DL (3.4-5.0) L Globulin 4.1 g/dL Albumin/Globulin Ratio 0.8 (1.0-2.7) L Test 05/18/20 11:55 POC Whole Blood Glucose 113 MG/DL (74-106) H Height (Feet): 6 Height (Inches): 2.00 Weight (Pounds): 283 Medications Current Medications Medications (Trade) Dose Ordered Sig/Lia Route PRN Reason Start Time Stop Time Status Last Admin Dose Admin Acetaminophen (Tylenol) 650 mg Q6H PRN ORAL Mild Pain (Pain Scale 1-3) 05/17/20 17:30 06/16/20 17:29 Acetaminophen (Tylenol) 650 mg Q6H PRN ORAL Temp >100 05/17/20 18:00 06/16/20 17:59 Acetaminophen/ Codeine Phosphate (Tylenol #3) 1 tab Q6H PRN ORAL Moderate Pain (Pain Scale 4-6) 05/17/20 18:00 05/24/20 17:59 Acetaminophen/ Hydrocodone Bitart ([place] 10/325) 1 tab Q6H PRN ORAL Severe Pain (Pain Scale 7-10) 05/17/20 18:30 05/24/20 18:29 05/18/20 08:36 Cefazolin Sodium 1 gm/Dextrose 55 ml @ 110 mls/hr Q8HR IVPB 05/18/20 15:00 05/25/20 14:59 Dextrose (Dextrose 50%) 25 ml Q30M PRN IV Hypoglycemia 05/17/20 18:30 08/15/20 18:29 Dextrose (Dextrose 50%) 50 ml Q30M PRN IV Hypoglycemia 05/17/20 20:15 08/15/20 20:14 Heparin Sodium (Porcine) (Heparin 5000 units/ml) 5,000 units EVERY 12 HOURS SUBQ 05/17/20 21:00 07/01/20 20:59 05/18/20 08:39 Insulin Aspart (NovoLOG) BEFORE MEALS AND HS SUBQ 05/17/20 21:00 2/10/21 20:59 Losartan Potassium (Cozaar) 25 mg DAILY ORAL 05/18/20 09:00 06/17/20 08:59 05/18/20 08:37 Metformin HCl (Glucophage) 500 mg ACBREAKFAST ORAL 05/18/20 06:30 06/17/20 06:29 05/18/20 06:17 Ondansetron HCl (Zofran) 4 mg Q4H PRN IVP Nausea & Vomiting 05/17/20 17:30 06/16/20 17:29 Vancomycin HCl (Vanco pharmacy to dose) 1 ea DAILY PRN MISC Per rx protocol 05/17/20 17:30 06/16/20 17:29 Vancomycin HCl 1.5 gm/Sodium Chloride 275 ml @ 137.5 mls/ hr Q8H IVPB 05/17/20 20:00 05/22/20 19:59 05/18/20 11:57 Zolpidem Tartrate (Ambien) 5 mg HSPRN PRN ORAL Insomnia 05/17/20 21:00 05/24/20 20:59 05/17/20 21:59 Assessment/Plan Problem List: (1) Cellulitis Assessment & Plan: 55-year-old male with left lower extremity cellulitis and edema. No trauma prior posterior open no nausea fever chills labs noted. Cellulitis no abscess. No acute surgical invention recommend at this time. IV antibiotics per infectious disease. Keep left lower extremity elevated while in bed. Okay to ambulate. Okay to shower. Local wound dressings with Xeroform gauze and ABD okay to wrap. Please change daily if done so. Will follow with recommendations ensure no abscess formation. Thank you for let me participate in patient's care will follow recommendations ICD Codes: L03.90 - Cellulitis, unspecified SNOMED: 803459550 (2) Encounter for removal of sutures ICD Codes: Z48.02 - Encounter for removal of sutures SNOMED: 949252589, [id number], [id number] (3) Knee pain, right ICD Codes: M25.561 - Pain in right knee SNOMED: 02263337 Zachary Adames May 18, 2020 14:43
--- NOTE | 2020-05-18 15:22 | Consultation ---
History of Present Illness General Date patient seen: May 18, 2020 Chief Complaint: Edema Present Illness HPI 55 year old male with hx of HTN, DM, obesity presented to ER with CC of one week of left leg swelling, warmth and erythema. He states that he popped the blister on that leg and the redness and warmth has worsened over the past week. He denies fever chills. He was diagnosed to have extensive cellulitis and is admitted for further management. Allergies: Coded Allergies: No Known Allergies (Unverified , 06/13/16) Medication History Unable to Obtain Active Prescriptions or Reported Meds Patient History Healthcare decision maker Resuscitation status Advanced Directive on File Past Medical/Surgical History Past Medical/Surgical History: (1) History of hypertension (2) Cellulitis Review of Systems All Other Systems: negative except mentioned in HPI Physical Exam General Appearance: WD/WN, no apparent distress Lines, tubes and drains: peripheral HEENT: normocephalic, atraumatic Neck: non-tender, normal alignment Respiratory/Chest: chest wall non-tender, lungs clear, normal breath sounds Breasts: no masses Cardiovascular/Chest: normal rate, regularly irregular Abdomen: normal bowel sounds, non tender Genitourinary/Rectal: normal genital exam, normal rectal exam Extremities: normal range of motion, normal inspection, other - left lower leg rash Last 24 Hour Vital Signs Date Time Temp Pulse Resp B/P (MAP) Pulse Ox O2 Delivery O2 Flow Rate FiO2 05/18/20 12:00 98.1 82 18 157/93 (114) 97 05/18/20 09:00 Room Air 05/18/20 08:37 152/96 05/18/20 08:00 97.2 86 18 152/96 (114) 96 05/18/20 04:00 98.7 87 18 126/83 (97) 98 05/18/20 00:00 97.9 92 20 129/84 (99) 98 05/17/20 21:00 Room Air 1.0 05/17/20 20:00 98.7 93 20 140/97 (111) 97 05/17/20 16:00 100.0 100 19 145/97 (113) 97 05/17/20 15:40 98.4 105 19 124/82 96 Room Air 05/17/20 15:22 98.4 105 19 124/82 96 Room Air Intake and Output 05/17/20 05/18/20 19:00 07:00 Intake Total 1675 ml Balance 1675 ml Intake Oral 400 ml IV Total 1275 ml # Voids 2 3 # Bowel Movements 2 Laboratory Tests Test 05/17/20 20:44 05/18/20 01:05 05/18/20 06:10 05/18/20 06:11 POC Whole Blood Glucose 133 MG/DL (74-106) H 108 MG/DL (74-106) H Urine Color Yellow Urine Appearance Clear Urine pH 6 (4.5-8.0) Urine Specific [place] 1.025 (1.005-1.035) Urine Protein Negative (NEGATIVE) Urine Glucose (UA) Negative (NEGATIVE) Urine Ketones 1+ (NEGATIVE) H Urine Blood 2+ (NEGATIVE) H Urine Nitrite Negative (NEGATIVE) Urine Bilirubin Negative (NEGATIVE) Urine Urobilinogen 8 MG/DL (0.0-1.0) H Urine Leukocyte Esterase Negative (NEGATIVE) Urine RBC 2-4 /HPF (0 - 0) H Urine WBC 0-2 /HPF (0 - 0) Urine Squamous Epithelial Cells Occasional /LPF Urine Bacteria Occasional /HPF (NONE) Urine Mucus Occasional /LPF White Blood Count 14.2 K/UL (4.8-10.8) H Red Blood Count 5.00 M/UL (4.70-6.10) Hemoglobin 15.5 G/DL (14.2-18.0) Hematocrit 46.7 % (42.0-52.0) Mean Corpuscular Volume 93 FL (80-99) Mean Corpuscular Hemoglobin 30.9 PG (27.0-31.0) Mean Corpuscular Hemoglobin Concent 33.1 G/DL (32.0-36.0) Red Cell Distribution Width 12.4 % (11.6-14.8) Platelet Count 139 K/UL (150-450) L Mean Platelet Volume 8.9 FL (6.5-10.1) Neutrophils (%) (Auto) 65.6 % (45.0-75.0) Lymphocytes (%) (Auto) 21.8 % (20.0-45.0) Monocytes (%) (Auto) 10.0 % (1.0-10.0) Eosinophils (%) (Auto) 2.1 % (0.0-3.0) Basophils (%) (Auto) 0.5 % (0.0-2.0) Sodium Level 137 MMOL/L (136-145) Potassium Level 3.5 MMOL/L (3.5-5.1) Chloride Level 104 MMOL/L (98-107) Carbon Dioxide Level 25 MMOL/L (21-32) Anion Gap 8 mmol/L (5-15) Blood Urea Nitrogen 12 mg/dL (7-18) Creatinine 0.9 MG/DL (0.55-1.30) Estimat Glomerular Filtration Rate > 60 mL/min (>60) Glucose Level 108 MG/DL (74-106) H Calcium Level 8.2 MG/DL (8.5-10.1) L Phosphorus Level 2.4 MG/DL (2.5-4.9) L Magnesium Level 1.9 MG/DL (1.8-2.4) Total Bilirubin 0.9 MG/DL (0.2-1.0) Aspartate Amino Transf (AST/SGOT) 18 U/L (15-37) Alanine Aminotransferase (ALT/SGPT) 31 U/L (12-78) Alkaline Phosphatase 73 U/L (46-116) Total Protein 7.2 G/DL (6.4-8.2) Albumin 3.1 G/DL (3.4-5.0) L Globulin 4.1 g/dL Albumin/Globulin Ratio 0.8 (1.0-2.7) L Test 05/18/20 11:55 POC Whole Blood Glucose 113 MG/DL (74-106) H Height (Feet): 6 Height (Inches): 2.00 Weight (Pounds): 283 Medications Current Medications Medications (Trade) Dose Ordered Sig/Lia Route PRN Reason Start Time Stop Time Status Last Admin Dose Admin Acetaminophen (Tylenol) 650 mg Q6H PRN ORAL Mild Pain (Pain Scale 1-3) 05/17/20 17:30 06/16/20 17:29 Acetaminophen (Tylenol) 650 mg Q6H PRN ORAL Temp >100 05/17/20 18:00 06/16/20 17:59 Acetaminophen/ Codeine Phosphate (Tylenol #3) 1 tab Q6H PRN ORAL Moderate Pain (Pain Scale 4-6) 05/17/20 18:00 05/24/20 17:59 Acetaminophen/ Hydrocodone Bitart ([place] 10/325) 1 tab Q6H PRN ORAL Severe Pain (Pain Scale 7-10) 05/17/20 18:30 05/24/20 18:29 05/18/20 08:36 Cefazolin Sodium 1 gm/Dextrose 55 ml @ 110 mls/hr Q8HR IVPB 05/18/20 15:00 05/25/20 14:59 Dextrose (Dextrose 50%) 25 ml Q30M PRN IV Hypoglycemia 05/17/20 18:30 08/15/20 18:29 Dextrose (Dextrose 50%) 50 ml Q30M PRN IV Hypoglycemia 05/17/20 20:15 08/15/20 20:14 Heparin Sodium (Porcine) (Heparin 5000 units/ml) 5,000 units EVERY 12 HOURS SUBQ 05/17/20 21:00 07/01/20 20:59 05/18/20 08:39 Insulin Aspart (NovoLOG) BEFORE MEALS AND HS SUBQ 05/17/20 21:00 08/15/20 20:59 Losartan Potassium (Cozaar) 25 mg DAILY ORAL 05/18/20 09:00 06/17/20 08:59 05/18/20 08:37 Metformin HCl (Glucophage) 500 mg ACBREAKFAST ORAL 05/18/20 06:30 06/17/20 06:29 05/18/20 06:17 Ondansetron HCl (Zofran) 4 mg Q4H PRN IVP Nausea & Vomiting 05/17/20 17:30 06/16/20 17:29 Vancomycin HCl (Vanco pharmacy to dose) 1 ea DAILY PRN MISC Per rx protocol 05/17/20 17:30 06/16/20 17:29 Vancomycin HCl 1.5 gm/Sodium Chloride 275 ml @ 137.5 mls/ hr Q8H IVPB 05/17/20 20:00 05/22/20 19:59 05/18/20 11:57 Zolpidem Tartrate (Ambien) 5 mg HSPRN PRN ORAL Insomnia 05/17/20 21:00 05/24/20 20:59 05/17/20 21:59 Assessment/Plan Problem List: (1) Cellulitis ICD Codes: L03.90 - Cellulitis, unspecified SNOMED: 061119697 (2) History of diabetes mellitus ICD Codes: Z86.39 - Personal history of other endocrine, nutritional and metabolic disease SNOMED: 467516246 (3) History of hypertension ICD Codes: Z86.79 - Personal history of other diseases of the circulatory system SNOMED: 450633563 Assessment/Plan: iv abx check wbc, and inflammatory markers dvt prophylaxis. Silviano Kelly MD May 18, 2020 15:22
[2020-05-18 16:00] VITALS: BP 151/97
--- NOTE | 2020-05-18 19:52 | NUR ---
NURSE HAND-OFF: Important Events on Shift: Patient Status: stable Diet: CCD medium Pending Orders: Pending Results/Labs: Pending MD notification: Latest Vital Signs: Temperature 97.9 , Pulse 82 , B/P 151 /97 , Respiratory Rate 18 , O2 SAT 97 , Room Air, O2 Flow Rate 1.0 . Vital Sign Comment: Latest Voss Fall Score: 20 Fall Risk: Low Risk Safety Measures: Call light Within Reach, Bed Alarm Zone 1, Side Rails Side Rails x2, Bed position Low and Locked. Fall Precautions: Yellow Socks Yellow Gown Door Sign Patient Fall Education Report given to Sury LAGUNA
[2020-05-18 20:00] VITALS: BP 155/99
--- NOTE | 2020-05-18 20:35 | NUR ---
NURSE NOTES: Patient in bed, awake, alert and verbally responsive. no complaint of pain or discomfort noted. Skin is intact, warm and dry to touch. Left lower leg redness. Abdomen is soft and no distended. Iv site noted, pain at the site, removed, will need to reinsert. Bed in low and locked position. Provide safe environment. CAll light is at bedside.
[2020-05-19] VITALS: BP 138/86
[2020-05-19] MEDS: Zolpidem 5mg tab ORAL PRN (00:13)
--- NOTE | 2020-05-19 00:28 | NUR ---
NURSE NOTES: Patient requested ambien, given PRN as ordered. Will reassess. Call light is at bedside. Will continue plan of care.
[2020-05-19 04:00] VITALS: BP_SYST 112; BP_SYST 140; BP_DIAS 86; BP_DIAS 90
[2020-05-19] MEDS: Vancomycin 1.5 GM in NS 275 ML IVPB SCH ×2 (04:19→12:07)
--- NOTE | 2020-05-19 05:00 | NUR ---
NURSE NOTES: Patient is awake, alert x 4 refusing to be connected to IV fluid. Will reassess. Call light is at bedside. Will continue plan of care. Addendum: 05/19/20 at 0656 by GIOVANA GUERRERO RN RN WRONG PATIENT
[2020-05-19] MEDS: metFORMIN 500mg tab ORAL SCH (06:13)
[2020-05-19] MEDS: NovoLOG Insulin Flexpen SUBQ SCH ×3 (06:13→16:30)
[2020-05-19] MEDS: ceFAZolin sod 1 GM in D5W 55 ML IVPB SCH ×4 (06:13→14:20)
[2020-05-19 06:35] LABS: BASOPHILS % (AUTO) 0.4 % (0.0-2.0); EOSINOPHILS % (AUTO) 3.3 % (0.0-3.0); HEMATOCRIT 46.2 % (42.0-52.0); HEMOGLOBIN 15.3 G/DL (14.2-18.0); LYMPHOCYTES % (AUTO) 27.5 % (20.0-45.0); MEAN CORPUSCULAR VOLUME 94 FL (80-99); MONOCYTES % (AUTO) 10.7 % (1.0-10.0); NEUTROPHILS % (AUTO) 58.1 % (45.0-75.0); PLATELET COUNT 166 K/UL (150-450); RED BLOOD COUNT 4.93 M/UL (4.70-6.10); RED CELL DISTRIBUTION WIDTH 12.6 % (11.6-14.8); WHITE BLOOD COUNT 10.2 K/UL (4.8-10.8)
[2020-05-19 07:06] LABS: ALANINE AMINOTRANSFERASE 30 U/L (12-78); ALBUMIN/GLOBULIN RATIO 0.7 (1.0-2.7); ALKALINE PHOSPHATASE 73 U/L (46-116); ANION GAP 8 mmol/L (5-15); ASPARTATE AMINO TRANSFERASE 20 U/L (15-37); BILIRUBIN,TOTAL 0.7 MG/DL (0.2-1.0); BLOOD UREA NITROGEN 12 mg/dL (7-18); CALCIUM 8.4 MG/DL (8.5-10.1); CARBON DIOXIDE 26 MMOL/L (21-32); CHLORIDE 103 MMOL/L (98-107); CREATININE 0.9 MG/DL (0.55-1.30); POTASSIUM 3.5 MMOL/L (3.5-5.1); SODIUM 137 MMOL/L (136-145)
--- NOTE | 2020-05-19 07:08 | NUR ---
NURSE HAND-OFF: Important Events on Shift:NEW IV Patient Status: Diet: CCHO M Pending Orders: WNL Pending Results/Labs: Pending MD notification: Latest Vital Signs: Temperature 98.1 , Pulse 67 , B/P 112 /90 , Respiratory Rate 18 , O2 SAT 99 , Room Air, O2 Flow Rate 1.0 . Vital Sign Comment: WNL Latest Voss Fall Score: 20 Fall Risk: Low Risk Safety Measures: Call light Within Reach, Bed Alarm Zone 1, Side Rails Side Rails x2, Bed position Low and Locked. Fall Precautions: Yellow Socks Yellow Gown Door Sign Patient Fall Education Report given to LUZ ELENA Pickens.
[2020-05-19 08:00] VITALS: BP 145/101
--- NOTE | 2020-05-19 08:05 | NUR ---
NURSE NOTES: Received report from Clint LAGUNA. Patient is awake and alert x4. Left leg swelling is smaller than marked area. Patient is not in pain and distress. Bed is low and locked. Call light is within reach. Left hand IV intact noted.
[2020-05-19] MEDS: Losartan 25mg tab ORAL SCH (09:16)
[2020-05-19] MEDS: Heparin 5000 units/ml inj SUBQ SCH (09:18)
--- NOTE | 2020-05-19 10:23 | NUR ---
NURSE NOTES: Per request from Dr. Kelly, called ID to inquire if patient can be switched to PO antibiotics. Received call back from Dr. Gutierrez who stated he will be in to see patient and continue antibiotics as ordered for now.
--- NOTE | 2020-05-19 10:25 | Infectious Diseases Prog Note ---
Assessment/Plan Abx: IV Vancomycin 05/17- Assessment: Sepsis, Sp L leg cellulitis Low grade fever x1 Leukocytosis, Sp Dm2 HTN obesity tobacco abuse Plan: -Continue empiric IV Vancomycin #3 and IV Ancef # 2 UPON dc will cont AB Rx with ( Bactrim and keflex x 1 wk, Rx in the chart) -f/u cx -Monitor CBC/CMP, temperatures -Bcx x2 Thank you for consulting [facility]. Will continue to follow along with you. Sean ramirez RN. Subjective Allergies: Coded Allergies: No Known Allergies (Unverified , 06/13/16) pt may leave AMA afebrile Objective Last 24 Hour Vital Signs Date Time Temp Pulse Resp B/P (MAP) Pulse Ox O2 Delivery O2 Flow Rate FiO2 05/19/20 09:16 145/101 05/19/20 08:00 97.6 81 18 145/101 (116) 98 05/19/20 04:00 98.1 67 18 112/90 (97) 99 05/19/20 00:00 98.3 88 18 138/86 (103) 98 05/18/20 21:00 Room Air 05/18/20 20:00 98.0 86 18 155/99 (117) 98 05/18/20 16:00 97.9 82 18 151/97 (115) 97 05/18/20 12:00 98.1 82 18 157/93 (114) 97 Height (Feet): 6 Height (Inches): 2.00 Weight (Pounds): 283 HEENT: atraumatic Respiratory/Chest: no respiratory distress Cardiovascular: regular rhythm Abdomen: non distended Laboratory Tests Test 05/18/20 11:55 05/18/20 16:36 05/18/20 18:50 05/19/20 04:35 POC Whole Blood Glucose 113 MG/DL (74-106) H 98 MG/DL (74-106) Hemoglobin A1c 6.9 % (4.3-6.0) H Vancomycin Level Trough 10.8 ug/mL (5.0-12.0) White Blood Count 10.2 K/UL (4.8-10.8) Red Blood Count 4.93 M/UL (4.70-6.10) Hemoglobin 15.3 G/DL (14.2-18.0) Hematocrit 46.2 % (42.0-52.0) Mean Corpuscular Volume 94 FL (80-99) Mean Corpuscular Hemoglobin 30.9 PG (27.0-31.0) Mean Corpuscular Hemoglobin Concent 33.0 G/DL (32.0-36.0) Red Cell Distribution Width 12.6 % (11.6-14.8) Platelet Count 166 K/UL (150-450) Mean Platelet Volume 7.9 FL (6.5-10.1) Neutrophils (%) (Auto) 58.1 % (45.0-75.0) Lymphocytes (%) (Auto) 27.5 % (20.0-45.0) Monocytes (%) (Auto) 10.7 % (1.0-10.0) H Eosinophils (%) (Auto) 3.3 % (0.0-3.0) H Basophils (%) (Auto) 0.4 % (0.0-2.0) Erythrocyte Sedimentation Rate 30 MM/HR (0-20) H Sodium Level 137 MMOL/L (136-145) Potassium Level 3.5 MMOL/L (3.5-5.1) Chloride Level 103 MMOL/L (98-107) Carbon Dioxide Level 26 MMOL/L (21-32) Anion Gap 8 mmol/L (5-15) Blood Urea Nitrogen 12 mg/dL (7-18) Creatinine 0.9 MG/DL (0.55-1.30) Estimat Glomerular Filtration Rate > 60 mL/min (>60) Glucose Level 108 MG/DL (74-106) H Calcium Level 8.4 MG/DL (8.5-10.1) L Phosphorus Level 3.0 MG/DL (2.5-4.9) Magnesium Level 2.0 MG/DL (1.8-2.4) Total Bilirubin 0.7 MG/DL (0.2-1.0) Aspartate Amino Transf (AST/SGOT) 20 U/L (15-37) Alanine Aminotransferase (ALT/SGPT) 30 U/L (12-78) Alkaline Phosphatase 73 U/L (46-116) C-Reactive Protein, Quantitative 14.9 mg/dL (0.00-0.90) H Total Protein 7.1 G/DL (6.4-8.2) Albumin 3.0 G/DL (3.4-5.0) L Globulin 4.1 g/dL Albumin/Globulin Ratio 0.7 (1.0-2.7) L Current Medications Medications (Trade) Dose Ordered Sig/Lia Route PRN Reason Start Time Stop Time Status Last Admin Dose Admin Acetaminophen (Tylenol) 650 mg Q6H PRN ORAL Mild Pain (Pain Scale 1-3) 05/17/20 17:30 06/16/20 17:29 Acetaminophen (Tylenol) 650 mg Q6H PRN ORAL Temp >100 05/17/20 18:00 06/16/20 17:59 Acetaminophen/ Codeine Phosphate (Tylenol #3) 1 tab Q6H PRN ORAL Moderate Pain (Pain Scale 4-6) 05/17/20 18:00 05/24/20 17:59 Acetaminophen/ Hydrocodone Bitart ([place] 10/325) 1 tab Q6H PRN ORAL Severe Pain (Pain Scale 7-10) 05/17/20 18:30 05/24/20 18:29 05/18/20 16:48 Cefazolin Sodium 1 gm/Dextrose 55 ml @ 110 mls/hr Q8HR IVPB 05/18/20 15:00 05/25/20 14:59 05/19/20 06:13 Dextrose (Dextrose 50%) 25 ml Q30M PRN IV Hypoglycemia 05/17/20 18:30 08/15/20 18:29 Dextrose (Dextrose 50%) 50 ml Q30M PRN IV Hypoglycemia 05/17/20 20:15 08/15/20 20:14 Heparin Sodium (Porcine) (Heparin 5000 units/ml) 5,000 units EVERY 12 HOURS SUBQ 05/17/20 21:00 07/01/20 20:59 05/19/20 09:18 Insulin Aspart (NovoLOG) BEFORE MEALS AND HS SUBQ 05/17/20 21:00 08/15/20 20:59 Losartan Potassium (Cozaar) 25 mg DAILY ORAL 05/18/20 09:00 06/17/20 08:59 05/19/20 09:16 Metformin HCl (Glucophage) 500 mg ACBREAKFAST ORAL 05/18/20 06:30 06/17/20 06:29 05/19/20 06:13 Ondansetron HCl (Zofran) 4 mg Q4H PRN IVP Nausea & Vomiting 05/17/20 17:30 06/16/20 17:29 Vancomycin HCl (Vanco pharmacy to dose) 1 ea DAILY PRN MISC Per rx protocol 05/17/20 17:30 06/16/20 17:29 Vancomycin HCl 1.5 gm/Sodium Chloride 275 ml @ 137.5 mls/ hr Q8H IVPB 05/17/20 20:00 05/22/20 19:59 05/19/20 04:19 Zolpidem Tartrate (Ambien) 5 mg HSPRN PRN ORAL Insomnia 05/17/20 21:00 05/24/20 20:59 05/19/20 00:13 Dany Gutierrez MD May 19, 2020 10:25
[2020-05-19 12:00] VITALS: BP 145/85
--- NOTE | 2020-05-19 14:31 | NUR ---
NURSE NOTES: Patient is requesting to be discharged. Patient is threatening to leave AMA if he is not discharged today. Called Dr. Simental to inquire if patient can be discharged, awaiting callback.
--- NOTE | 2020-05-19 14:49 | Surgery Progress Note ---
Surgery Progress Note Subjective Symptoms: improved, tolerating diet, voiding well, passing flatus, BM, pain decreased Objective Last 24 Hour Vital Signs Date Time Temp Pulse Resp B/P (MAP) Pulse Ox O2 Delivery O2 Flow Rate FiO2 05/19/20 12:00 97.4 61 18 145/85 (105) 99 05/19/20 09:16 145/101 05/19/20 09:00 Room Air 05/19/20 08:00 97.6 81 18 145/101 (116) 98 05/19/20 04:00 98.1 67 18 112/90 (97) 99 05/19/20 00:00 98.3 88 18 138/86 (103) 98 05/18/20 21:00 Room Air 05/18/20 20:00 98.0 86 18 155/99 (117) 98 05/18/20 16:00 97.9 82 18 151/97 (115) 97 I&O Intake and Output 05/18/20 05/19/20 19:00 07:00 Intake Total 400 ml 1660.0 ml Balance 400 ml 1660.0 ml Intake Oral 400 ml 1000 ml IV Total 660.0 ml # Voids 2 4 # Bowel Movements 2 Dressing: dry Wound: clean Cardiovascular: RSR Respiratory: clear Abdomen: soft, non-tender, present bowel sounds Extremities: edema, no tenderness, no cyanosis Laboratory Tests Test 05/18/20 16:36 05/18/20 18:50 05/19/20 04:35 05/19/20 11:29 POC Whole Blood Glucose 98 MG/DL (74-106) 113 MG/DL (74-106) H Hemoglobin A1c 6.9 % (4.3-6.0) H Vancomycin Level Trough 10.8 ug/mL (5.0-12.0) White Blood Count 10.2 K/UL (4.8-10.8) Red Blood Count 4.93 M/UL (4.70-6.10) Hemoglobin 15.3 G/DL (14.2-18.0) Hematocrit 46.2 % (42.0-52.0) Mean Corpuscular Volume 94 FL (80-99) Mean Corpuscular Hemoglobin 30.9 PG (27.0-31.0) Mean Corpuscular Hemoglobin Concent 33.0 G/DL (32.0-36.0) Red Cell Distribution Width 12.6 % (11.6-14.8) Platelet Count 166 K/UL (150-450) Mean Platelet Volume 7.9 FL (6.5-10.1) Neutrophils (%) (Auto) 58.1 % (45.0-75.0) Lymphocytes (%) (Auto) 27.5 % (20.0-45.0) Monocytes (%) (Auto) 10.7 % (1.0-10.0) H Eosinophils (%) (Auto) 3.3 % (0.0-3.0) H Basophils (%) (Auto) 0.4 % (0.0-2.0) Erythrocyte Sedimentation Rate 30 MM/HR (0-20) H Sodium Level 137 MMOL/L (136-145) Potassium Level 3.5 MMOL/L (3.5-5.1) Chloride Level 103 MMOL/L (98-107) Carbon Dioxide Level 26 MMOL/L (21-32) Anion Gap 8 mmol/L (5-15) Blood Urea Nitrogen 12 mg/dL (7-18) Creatinine 0.9 MG/DL (0.55-1.30) Estimat Glomerular Filtration Rate > 60 mL/min (>60) Glucose Level 108 MG/DL (74-106) H Calcium Level 8.4 MG/DL (8.5-10.1) L Phosphorus Level 3.0 MG/DL (2.5-4.9) Magnesium Level 2.0 MG/DL (1.8-2.4) Total Bilirubin 0.7 MG/DL (0.2-1.0) Aspartate Amino Transf (AST/SGOT) 20 U/L (15-37) Alanine Aminotransferase (ALT/SGPT) 30 U/L (12-78) Alkaline Phosphatase 73 U/L (46-116) C-Reactive Protein, Quantitative 14.9 mg/dL (0.00-0.90) H Total Protein 7.1 G/DL (6.4-8.2) Albumin 3.0 G/DL (3.4-5.0) L Globulin 4.1 g/dL Albumin/Globulin Ratio 0.7 (1.0-2.7) L Plan Problems: (1) Cellulitis Assessment & Plan: 55-year-old male with left lower extremity cellulitis and edema. No trauma prior posterior open no nausea fever chills labs noted. Cellulitis no abscess. No acute surgical invention recommend at this time. IV antibiotics per infectious disease. Keep left lower extremity elevated while in bed. Okay to ambulate. Okay to shower. Local wound dressings with Xeroform gauze and ABD okay to wrap. Please change daily if done so. Will follow with recommendations ensure no abscess formation. Thank you for let me participate in patient's care will follow recommendations cellulitis improving feels better keeping leg elevated no n/v d/c plan tomorrow outpt followu p (2) Encounter for removal of sutures (3) Knee pain, right AlirioNisha richmondya May 19, 2020 14:49
[2020-05-19 15:57] VITALS: BP 136/92
--- NOTE | 2020-05-19 17:03 | Internal Med Progress Note ---
Subjective Date of Service: May 19, 2020 Physician Name Estevan Stone Attending Physician Biju Simental MD Current Medications Medications (Trade) Dose Ordered Sig/Lia Route PRN Reason Start Time Stop Time Status Last Admin Dose Admin Acetaminophen (Tylenol) 650 mg Q6H PRN ORAL Mild Pain (Pain Scale 1-3) 05/17/20 17:30 06/16/20 17:29 Acetaminophen (Tylenol) 650 mg Q6H PRN ORAL Temp >100 05/17/20 18:00 06/16/20 17:59 Acetaminophen/ Codeine Phosphate (Tylenol #3) 1 tab Q6H PRN ORAL Moderate Pain (Pain Scale 4-6) 05/17/20 18:00 05/24/20 17:59 Acetaminophen/ Hydrocodone Bitart ([place] 10/325) 1 tab Q6H PRN ORAL Severe Pain (Pain Scale 7-10) 05/17/20 18:30 05/24/20 18:29 05/18/20 16:48 Cefazolin Sodium 1 gm/Dextrose 55 ml @ 110 mls/hr Q8HR IVPB 05/18/20 15:00 05/25/20 14:59 05/19/20 14:20 Dextrose (Dextrose 50%) 25 ml Q30M PRN IV Hypoglycemia 05/17/20 18:30 08/15/20 18:29 Dextrose (Dextrose 50%) 50 ml Q30M PRN IV Hypoglycemia 05/17/20 20:15 08/15/20 20:14 Heparin Sodium (Porcine) (Heparin 5000 units/ml) 5,000 units EVERY 12 HOURS SUBQ 05/17/20 21:00 07/01/20 20:59 05/19/20 09:18 Insulin Aspart (NovoLOG) BEFORE MEALS AND HS SUBQ 05/17/20 21:00 08/15/20 20:59 Losartan Potassium (Cozaar) 25 mg DAILY ORAL 05/18/20 09:00 06/17/20 08:59 05/19/20 09:16 Metformin HCl (Glucophage) 500 mg ACBREAKFAST ORAL 05/18/20 06:30 06/17/20 06:29 05/19/20 06:13 Ondansetron HCl (Zofran) 4 mg Q4H PRN IVP Nausea & Vomiting 05/17/20 17:30 06/16/20 17:29 Vancomycin HCl (Vanco pharmacy to dose) 1 ea DAILY PRN MISC Per rx protocol 05/17/20 17:30 06/16/20 17:29 Vancomycin HCl 1.5 gm/Sodium Chloride 275 ml @ 137.5 mls/ hr Q8H IVPB 05/17/20 20:00 05/22/20 19:59 05/19/20 12:07 Zolpidem Tartrate (Ambien) 5 mg HSPRN PRN ORAL Insomnia 05/17/20 21:00 05/24/20 20:59 05/19/20 00:13 Allergies: Coded Allergies: No Known Allergies (Unverified , 06/13/16) ROS Limited/Unobtainable: No Constitutional: Reports: no symptoms HEENT: Reports: no symptoms Cardiovascular: Reports: no symptoms Respiratory: Reports: no symptoms Gastrointestinal/Abdominal: Reports: no symptoms Genitourinary: Reports: no symptoms Neurologic/Psychiatric: Reports: no symptoms Subjective 55 YO M admitted with cellulitis left leg. Cover for Int Med-Dr Simental Objective Last Vital Signs Date Time Temp Pulse Resp B/P (MAP) Pulse Ox O2 Delivery O2 Flow Rate FiO2 05/19/20 15:57 98.5 73 18 136/92 (107) 98 05/19/20 09:00 Room Air 05/17/20 21:00 1.0 Laboratory Tests Test 05/18/20 18:50 05/19/20 04:35 05/19/20 11:29 05/19/20 16:29 Hemoglobin A1c 6.9 % (4.3-6.0) H Vancomycin Level Trough 10.8 ug/mL (5.0-12.0) White Blood Count 10.2 K/UL (4.8-10.8) Red Blood Count 4.93 M/UL (4.70-6.10) Hemoglobin 15.3 G/DL (14.2-18.0) Hematocrit 46.2 % (42.0-52.0) Mean Corpuscular Volume 94 FL (80-99) Mean Corpuscular Hemoglobin 30.9 PG (27.0-31.0) Mean Corpuscular Hemoglobin Concent 33.0 G/DL (32.0-36.0) Red Cell Distribution Width 12.6 % (11.6-14.8) Platelet Count 166 K/UL (150-450) Mean Platelet Volume 7.9 FL (6.5-10.1) Neutrophils (%) (Auto) 58.1 % (45.0-75.0) Lymphocytes (%) (Auto) 27.5 % (20.0-45.0) Monocytes (%) (Auto) 10.7 % (1.0-10.0) H Eosinophils (%) (Auto) 3.3 % (0.0-3.0) H Basophils (%) (Auto) 0.4 % (0.0-2.0) Erythrocyte Sedimentation Rate 30 MM/HR (0-20) H Sodium Level 137 MMOL/L (136-145) Potassium Level 3.5 MMOL/L (3.5-5.1) Chloride Level 103 MMOL/L (98-107) Carbon Dioxide Level 26 MMOL/L (21-32) Anion Gap 8 mmol/L (5-15) Blood Urea Nitrogen 12 mg/dL (7-18) Creatinine 0.9 MG/DL (0.55-1.30) Estimat Glomerular Filtration Rate > 60 mL/min (>60) Glucose Level 108 MG/DL (74-106) H Calcium Level 8.4 MG/DL (8.5-10.1) L Phosphorus Level 3.0 MG/DL (2.5-4.9) Magnesium Level 2.0 MG/DL (1.8-2.4) Total Bilirubin 0.7 MG/DL (0.2-1.0) Aspartate Amino Transf (AST/SGOT) 20 U/L (15-37) Alanine Aminotransferase (ALT/SGPT) 30 U/L (12-78) Alkaline Phosphatase 73 U/L (46-116) C-Reactive Protein, Quantitative 14.9 mg/dL (0.00-0.90) H Total Protein 7.1 G/DL (6.4-8.2) Albumin 3.0 G/DL (3.4-5.0) L Globulin 4.1 g/dL Albumin/Globulin Ratio 0.7 (1.0-2.7) L POC Whole Blood Glucose 113 MG/DL (74-106) H 89 MG/DL (74-106) Intake and Output 05/18/20 05/19/20 19:00 07:00 Intake Total 400 ml 1660.0 ml Balance 400 ml 1660.0 ml Intake Oral 400 ml 1000 ml IV Total 660.0 ml # Voids 2 4 # Bowel Movements 2 Objective Objective General: No acute distress, awake and alert HEENT: NCAT, sclera anicteric, PERRL, EOMI. Neck: Supple, no significant jugular venous distention, Lungs: Good inspiratory effort, no accessory muscle use, clear to auscultation bilaterally, no Wheeze or Rales. Heart: Regular rate and rhythm, normal S1/S2, no murmurs/gallops Abdomen: soft, nontender, nondistended. Normoactive bowel sounds.obesity. / Rectal: Refused and deferred. Extremities: No Cyanosis , clubbing left lower extremity with decreased erythema and edema. Neuro: A&O x 3, Able to move all extremities Skin: warm, no rashes or lesions Psych: Normal mood and affect Assessment/Plan Assessment/Plan ASSESSMENT: 1. Cellulitis of left lower extremity. 2. Diabetes type 2. 3. Hypertension. 4. Obesity. PLAN: 1. Admit the patient to medical floor. We will follow up with 2. Code status, full code. 3. DVT prophylaxis= heparin subcutaneous. 4. antibiotics = vancomycin and cefazolin. 5. Dr. Kelly=pulmonary/critical care 6. ID=Dr Gutierrez 7. Discharge home; follow up Dr Simental or Bertha 05/21/20 Estevan Stone MD May 19, 2020 17:03
[2020-05-19] MEDS ORDERED: CEPHALEXIN500 MG ORAL (17:23)
[2020-05-19] MEDS ORDERED: BACTRIM-DS1 EA ORAL (17:23)
--- NOTE | 2020-05-19 17:44 | Pulmonology Progress Note ---
Subjective ROS Limited/Unobtainable: No Interval Events: slightly better Allergies: Coded Allergies: No Known Allergies (Unverified , 06/13/16) Objective Last 24 Hour Vital Signs Date Time Temp Pulse Resp B/P (MAP) Pulse Ox O2 Delivery O2 Flow Rate FiO2 05/19/20 15:57 98.5 73 18 136/92 (107) 98 05/19/20 12:00 97.4 61 18 145/85 (105) 99 05/19/20 09:16 145/101 05/19/20 09:00 Room Air 05/19/20 08:00 97.6 81 18 145/101 (116) 98 05/19/20 04:00 98.1 67 18 112/90 (97) 99 05/19/20 00:00 98.3 88 18 138/86 (103) 98 05/18/20 21:00 Room Air 05/18/20 20:00 98.0 86 18 155/99 (117) 98 Intake and Output 05/18/20 05/19/20 19:00 07:00 Intake Total 400 ml 1660.0 ml Balance 400 ml 1660.0 ml Intake Oral 400 ml 1000 ml IV Total 660.0 ml # Voids 2 4 # Bowel Movements 2 General Appearance: WD/WN HEENT: normocephalic Respiratory: chest wall non-tender, lungs clear Abdomen: normal bowel sounds, soft, non tender, no organomegaly Extremities: no cyanosis Neurologic: no motor/sensory deficits Laboratory Tests 05/18/20 18:50: Hemoglobin A1c 6.9H, Vancomycin Level Trough 10.8 05/19/20 04:35: White Blood Count 10.2, Red Blood Count 4.93, Hemoglobin 15.3, Hematocrit 46.2, Mean Corpuscular Volume 94, Mean Corpuscular Hemoglobin 30.9, Mean Corpuscular Hemoglobin Concent 33.0, Red Cell Distribution Width 12.6, Platelet Count 166, Mean Platelet Volume 7.9, Neutrophils (%) (Auto) 58.1, Lymphocytes (%) (Auto) 27.5, Monocytes (%) (Auto) 10.7H, Eosinophils (%) (Auto) 3.3H, Basophils (%) (Auto) 0.4, Erythrocyte Sedimentation Rate 30H, Sodium Level 137, Potassium Level 3.5, Chloride Level 103, Carbon Dioxide Level 26, Anion Gap 8, Blood Urea Nitrogen 12, Creatinine 0.9, Estimat Glomerular Filtration Rate > 60, Glucose Level 108H, Calcium Level 8.4L, Phosphorus Level 3.0, Magnesium Level 2.0, Total Bilirubin 0.7, Aspartate Amino Transf (AST/SGOT) 20, Alanine Aminotransferase (ALT/SGPT) 30, Alkaline Phosphatase 73, C-Reactive Protein, Quantitative 14.9H, Total Protein 7.1, Albumin 3.0L, Globulin 4.1, Albumin/Globulin Ratio 0.7L 05/19/20 11:29: POC Whole Blood Glucose 113H 05/19/20 16:29: POC Whole Blood Glucose 89 Current Medications Medications (Trade) Dose Ordered Sig/Lia Route PRN Reason Start Time Stop Time Status Last Admin Dose Admin Acetaminophen (Tylenol) 650 mg Q6H PRN ORAL Mild Pain (Pain Scale 1-3) 05/17/20 17:30 06/16/20 17:29 Acetaminophen (Tylenol) 650 mg Q6H PRN ORAL Temp >100 05/17/20 18:00 06/16/20 17:59 Acetaminophen/ Codeine Phosphate (Tylenol #3) 1 tab Q6H PRN ORAL Moderate Pain (Pain Scale 4-6) 05/17/20 18:00 05/24/20 17:59 Acetaminophen/ Hydrocodone Bitart ([place] 10/325) 1 tab Q6H PRN ORAL Severe Pain (Pain Scale 7-10) 05/17/20 18:30 05/24/20 18:29 05/18/20 16:48 Cefazolin Sodium 1 gm/Dextrose 55 ml @ 110 mls/hr Q8HR IVPB 05/18/20 15:00 05/25/20 14:59 05/19/20 14:20 Dextrose (Dextrose 50%) 25 ml Q30M PRN IV Hypoglycemia 05/17/20 18:30 08/15/20 18:29 Dextrose (Dextrose 50%) 50 ml Q30M PRN IV Hypoglycemia 05/17/20 20:15 08/15/20 20:14 Heparin Sodium (Porcine) (Heparin 5000 units/ml) 5,000 units EVERY 12 HOURS SUBQ 05/17/20 21:00 07/01/20 20:59 05/19/20 09:18 Insulin Aspart (NovoLOG) BEFORE MEALS AND HS SUBQ 05/17/20 21:00 2/10/21 20:59 Losartan Potassium (Cozaar) 25 mg DAILY ORAL 05/18/20 09:00 06/17/20 08:59 05/19/20 09:16 Metformin HCl (Glucophage) 500 mg ACBREAKFAST ORAL 05/18/20 06:30 06/17/20 06:29 05/19/20 06:13 Ondansetron HCl (Zofran) 4 mg Q4H PRN IVP Nausea & Vomiting 05/17/20 17:30 06/16/20 17:29 Vancomycin HCl (Vanco pharmacy to dose) 1 ea DAILY PRN MISC Per rx protocol 05/17/20 17:30 06/16/20 17:29 Vancomycin HCl 1.5 gm/Sodium Chloride 275 ml @ 137.5 mls/ hr Q8H IVPB 05/17/20 20:00 05/22/20 19:59 05/19/20 12:07 Zolpidem Tartrate (Ambien) 5 mg HSPRN PRN ORAL Insomnia 05/17/20 21:00 05/24/20 20:59 05/19/20 00:13 Assessment/Plan Problems: (1) Cellulitis (2) History of diabetes mellitus (3) History of hypertension Assessment/Plan improving iv abx check wbc, and inflammatory markers, CRP is 14 dvt prophylaxis. Silviano Kelly MD May 19, 2020 17:44
--- NOTE | 2020-05-19 17:57 | NUR ---
NURSE NOTES: No callback received from Dr. Simental. Patient seen by Dr. Bertha MD ordered to discharge patient.
--- NOTE | 2020-05-19 18:14 | NUR ---
NURSE NOTES: Patient is discharged without pain and discomfort. IV is removed with no bleeding noted. Patient got prescription by Dr. Gutierrez. Discharge teaching is given and patient verbalized understanding. Patient is escorted outside the hospital by RN.
--- NOTE | 2020-05-19 19:30 | Consultation ---
DATE OF CONSULTATION: 05/19/2020 ENDOCRINOLOGY CONSULTATION CONSULTING PHYSICIAN: Stu Lainez MD REFERRING PHYSICIAN: Biju Simental MD REASON FOR CONSULTATION: Diabetes management. HISTORY OF PRESENT ILLNESS: The patient is a 55-year-old male with past medical history of diabetes, hypertension, obesity, tobacco use, presented to the hospital with leg swelling and erythema on the lower extremity with pop. PAST MEDICAL HISTORY: 1. Diabetes. 2. Hypertension. 3. Obesity. PHYSICAL EXAMINATION: VITAL SIGNS: BP 145/85, pulse 61, and temperature 97.4. HEENT: Pupils are equal and reactive to light. Sclerae anicteric. NECK: No JVD. LUNGS: Clear. HEART: Regular. LUNGS: Clear. ABDOMEN: Positive bowel sounds. Soft. EXTREMITIES: Positive for edema. LABORATORY VALUES: WBC 10, hemoglobin 15, hematocrit 46, platelet of 156. Sodium 137, potassium 3.5, chloride 103, bicarb 26, BUN 12, creatinine 0.9, and glucose of 108. Hemoglobin A1c of 6.9. Calcium of 8.4. Urine tox screen is negative. DIAGNOSES: 1. Diabetes. 2. Sepsis. 3. Lower extremity cellulitis. 4. Obesity. PLAN: 1. Metformin monotherapy. 2. NovoLog sliding scale before meals and at bedtime. 3. Hypoglycemia protocol is in order. 4. Further adjustment according to blood glucose values. Thank you Dr. Simental for the courtesy of this consultation. Stu Lainez M.D. DR: LUZ ELENA/TRANG JOB#: [id number] CC: ASHLEY
--- NOTE | 2020-05-21 10:11 | Discharge Summary ---
Discharge Summary Discharge Summary _ DATE OF ADMISSION: 05/17/2020 DATE OF DISCHARGE: 05/19/2020 DISCHARGED BY: Dr. Simental REASON FOR ADMISSION: 54 years old male with past medical history of diabetes mellitus type 2, hypertension, presented to emergency department complaining of left leg swelling, redness and tenderness to touch. Patient apparently had a blister in the leg with redness and warmth , which worsened over the past week. He denied fever and chills. He denied nausea, vomiting, diarrhea or constipation. He denied chest pain or shortness of breath. Laboratory work-up revealed leukocytosis with WBC 19.5, stable hemoglobin, hematocrit and platelet count. Stable electrolytes and renal parameters. Urinalysis revealed evidence of urinary tract infection. Venous duplex bilateral lower extremity revealed no evidence of acute DVT. Patient received empiric antibiotic and admitted for further management CONSULTANTS: pulmonary Dr. Kelly chro Dr. Lainez ID specialist Dr. Gutierrez surgery Dr. Adames [facility] COURSE: Patient admitted to medical surgical floor. Patient started on IV antibiotic as per ID specialist recommendation. Leukocytosis resolved in 2 days, low-grade fevers resolved. CRP 14.9 ESR 30. Patient was on IV antibiotic while in the hospital and changed to Bactrim and Keflex upon discharge for additional week to complete the course. Pain management was addressed. DVT prophylaxis provided General Practice followed. Blood sugar was managed with Metformin. Sliding scale of insulin was on board as needed. Hypoglycemia protocol was in order. Hemoglobin A1c 6.9. Diabetic diet and diabetic teaching provided. Surgeon followed. No evidence of abscess. Leg was kept elevated. Patient cleared for ambulation and shower. Local wound care provided as per surgeon recommendation, continue at home. Patient was counseled on smoking cessation. Patient clinically stabilized and was ready for discharge. FINAL DIAGNOSES: Sepsis Left leg cellulitis Leukocytosis- resolved Diabetes mellitus Hypertension Obesity Tobacco abuse DISCHARGE MEDICATIONS: See Medication Reconciliation list. DISCHARGE INSTRUCTIONS: Patient was discharged home. Follow-up with a primary care provider in 1 week. I have been assigned to dictate discharge summary for this account. I was not involved in the patient's management. Liane Cason NP May 21, 2020 10:11
== END 2020-05-19 18:15 | disposition home or self-care (01) | DRG 720 ==
LOC: EMR 12:15 → 3E 15:12 → EDBEDREQ 15:16 → OBSVTOIN 15:25 → 3E 15:42
DX: A41.9 Sepsis, unspecified organism (principal); L03.116 Cellulitis of left lower limb; E11.9 Type 2 diabetes mellitus without complications; E66.9 Obesity, unspecified; F17.200 Nicotine dependence, unspecified, uncomplicated; I10 Essential (primary) hypertension; Z68.32 Body mass index [BMI] 32.0-32.9, adult; Z68.36 Body mass index [BMI] 36.0-36.9, adult
CPT/HCPCS: 36415; 80053; 80202; 81003; 82248; 82962; 83036; 83735; 84100; 85007; 85025; 85651; 86140; 87040; 93971; 96365; 96366; 99285; J1815; J7030